=== PATIENT | female | born 1970 | race Caucasian/White ===

== ENCOUNTER → 2017-07-23 09:19 | Outpatient (CLI) | payer OTHER, SELFPAY ==
--- NOTE | 2017-07-23 09:25 | RAD_ITS ---
STUDY: X-RAY - LEFT SHOULDER REASON FOR EXAM: Female, 46 years old. Shoulder pain after repetitive lifting at work. TECHNIQUE: 3 view(s) of the shoulder. COMPARISON: None. FINDINGS: There is a mildly low riding shoulder without brian dislocation. There is no acute fracture lucency. There is no cortical step-off. The acromioclavicular and coracoclavicular joint spaces appear normal. The left lung within the field of view appears unremarkable. There is well-corticated and diffuse calcification adjacent to the humeral head and in the subacromial space. Normal Normal visualized pulmonary apex. RAD/Shoulder min 2 Views IMPRESSION: No evident acute osseous abnormality. Periarticular calcification consistent with a manifestation of calcific tendinitis versus calcific bursitis/capsulitis. Mildly low riding humeral head may represent a manifestation of joint effusion. Electronically Signed: Jb Newberry MD at 9:52 EDT , Service support ,
== END ==
PROVIDERS: Family Provider Family Medicine; PCP Family Medicine; Visit Provider Physician Assistant
DX: S46.912A Strain of unspecified muscle, fascia and tendon at shoulder and upper arm level, left arm, initial encounter (principal); X58.XXXA Exposure to other specified factors, initial encounter; Y93.9 Activity, unspecified; Y92.9 Unspecified place or not applicable; Y99.9 Unspecified external cause status
CPT/HCPCS: 73030

== ENCOUNTER 2017-09-12 16:30 | Outpatient (RCR) | payer OTHER, SELFPAY ==
--- NOTE | 2017-08-10 16:00 | HP.PTEVAL_ITS ---
Patient's Visit Information MIGUEL RENO is a 46 year old F referred to Physical Therapy by DARCY Klein with a diagnosis of STRAIN OF LEFT ARM.. Date of Evaluation: 08/10/17 Physical Therapist: Catherine Sanchez - Visit Plan Frequency: 3x /Week Duration: 4-6 Weeks Plan: POSTURE CORRECTION/STRENGTHENING, INSTRUCTION IN APPROPRIATE BODY MECHANICS AND ACTIVITY MODIFICATIONS. GREGORY UE ROM, STRETCHING AND STRENGTHENING. HEP INSTRUCTION. MODALITIES NEEDED. - Subjective Subjective: Diagnosis: STRAIN OF LEFT ARM. 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 Disability: NO. Present symptoms: LEFT UPPER ARM. NO NUMBNESS OR TINGLING. Present since: JULY 20 2017. Pain Scale: WORSE 3/10, LEAST 0/10. Currently: 2/10. Commenced as a result of : TWISTING AND CLAMPING PARTS AT WORK WHILE STANDING. Symptoms at onset: SAME CURRENT BUT GETTING BETTER. Worse: WORK, CARRYING PURSE WITH LEFT HAND , OPENING STUFF AT HOME LIKE JARS - HURTS TO HOLD JAR WITH LEFT WHILE TWISTING WITH RIGHT. 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 Better: RESTING IT. Disturbed sleep: YES - HARD TO SLEEP ON LEFT SIDE. Previous history/Previous treatment: UNREMARKABLE. Dizziness: NO. Tinnitis: NO. Nausea: NO. Difficulty Swollowing: NO. Gait: NORMAL. Accidents: BNO. Unexplained weight loss: NO. Imaging: LEFT SHOULDER X-RAY - PATIENT REPORTS SHE WAS TOLD THERE WAS A SPOT ON HER BONE THAT LOOKED LIKE AN OLD INJURY BUT SHE DOESN'T EVER REMEMBER HURTING HER SHOULDER BEFORE. PMH: UNREMARKABLE. Recent major surgery: UNREMARKABLE - Objective Sitting Posture: POOR. FORWARD HEAD AND ROUNDED SHOULDERS. NO TORTICOLLIS. MILD SUBLUXATION OF LEFT SHOULDER COMPARED TO RIGHT. Active Correction of posture: NE. Other Observations: INDEP GAIT INTO PT WITHOUT ASSISTIVE DEVICE. PATIENT IS CALM AND PLEASANT AND COOPERATIVE TO WORK WITH. Motor deficit: RIGHT UE WFL. RIGHT SHOULDER FLEX 3-/5, ABD 3-/5, IR 4-/5, ER 3-/5. 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 Sensory deficit: GREGORY UE LIGHT TOUCH SENSATION IS INTACT AND SYMMETRICAL. ROM deficit: RIGHT SHOULDER WFL. LEFT SHOULDER ACTIVE ROM IN SITTING FOR FLEXION = 130 DEG, ABD = 160 DEG. SUPINE LEFT SHOULDER FLEX , ABD, IR, ER. Reflexes: 2/3 GREGORY UE'S. Dural Signs: NEGATIVE GREGORY UE'S. Cervical Mvmt Loss: CERVICAL ROM WFL ALL PLANES AND PATIENT DENIES ANY INCREASED PAIN WITH CERVICAL ROM TESTING ALL PLANES. Postural strength: POOR. Palpation: NO ACUTE TENDERNESS WITH PALPATION OF THE NECK, SHOULDERS OR ARMS. - Goals Goal 1:: DECREASE C/O LEFT SHOULDER/ARM PAIN Goal Time Frame: 4-6 Weeks Goal 2:: INCREASE PAINFREE FUNCTIONAL ROM OF LEFT UE Goal Time Frame: 4-6 Weeks Goal 3:: INCREASE PAINFREE FUNCTIONAL STRENGTH OF LUE Goal Time Frame: 4-6 Weeks Goal 4:: SUCCESSFUL RETURN TO FULL DUTY WORK Goal Time Frame: 4-6 Weeks Goal 5:: INDEP HEP FOR CONTINUE IMPROVEMENT ONCE FORMAL PT CONCLUDES. Goal Time Frame: 4-6 Weeks - Rehabilitation Potential Rehabilitation Potential: Good - Anticipated Interventions Patient/Client Instruction: Educate patient on: Condition, Plan of Care, Risk Factors, Benefits of Fitness Program For the Purpose of:: To improve self management Therapeutic Exercise to Include: Strength training, Body mechanics, Postural training, Flexibilty training, Passive ROM, Active ROM, Scapular Strength/ Stabilization For the Purpose of:: To decrease pain, To increase ROM, To improve muscle performance and motor function, To improve ability to perform ADL's, To increase tolerance to activity/condition/position, To improve ability of physical actions for home/community/work/leisure Manual Therapy Techniques to Include: Passive ROM, Soft tissue mobilization For the Purpose of:: To decrease pain, To decrease swelling/inflammation, To increase ROM, To improve nutrient delivery to tissue TENS: Yes IF ES: Yes Cryotherapy (ice pack, ice massage): Yes Thermo therapy (hot pack): Yes Ultrasound (thermal/non thermal): Yes For the Purpose of:: To decrease pain, To decrease swelling/inflammation, To increase ROM, To improve nutrient delivery to tissue Thank you for the opportunity to evaluate your patient. For Medicare and Medicare HMO plans, please review the plan of care and approve it. It will need to be FAXED BACK to us at [phone] for Medicare purposes. Please let me know if there are questions or concerns regarding this plan of care. Physician Signature: Date:
--- NOTE | 2017-09-12 17:14 | HP.PTREVAL ---
DARCY Klein, It has been my pleasure to treat MIGUEL RENO over the last 10 visits for STRAIN OF LEFT ARM.. Please see the progress note below for an update on the physical therapy plan of care! Subjective: PATIENT REPORTS EVERYTHING HAS IMPROVED. SHE REPORTS SHE CAN REACH UP ABOVE HER HEAD WITHOUT PAIN. SHE CAN LIFT AND USE HER ARM AT HOME AND AT WORK WITHOUT PAIN. I'VE COME A LONG WAY. PATIENT REPORTS SHE STILL FEELS WEAK REACHING OUT TO THE SIDE. SHE REPORTS SHE REALLY HASN'T BEEN HAVING ANY SHOULDER PAIN BUT IT DOES GET SORE WITH EX'S LIFTING OUT TO THE SIDE AND AFTER WORKING. FOLLOW UP WITH BETO TAVERAS PLANNED TOMORROW. PATIENT REPORTS SHE HAS BEEN DOING PRETTY MUCH EVERYTHING AT WORK EXCEPT CLAMPING AND OVER-TIME. SHE FEELS READY TO HAVE HER RESTRICTIONS REMOVED. Objective/Function: PATIENT IS MAKING GREAT PROGRESS BUT STILL HAS LEFT SHOULDER DEFICITS IN TERMS OF STRENTH AND ROM. UPON EXAM: Motor deficit: RIGHT UE WFL. LEFT SHOULDER FLEX 4+/5, ABD 4/5, IR 5/5, ER 4-/5 (LEFT SHOULDER TESTED IN AVAILABLE RANGE). LEFT ELBOW, WRIST AND HAND 5/5 WITH VOLTAGE REGULATOR ASSEMBLER STRENGTH OF 40 LBS (RIGHT VOLTAGE REGULATOR ASSEMBLER 50 LBS). Sensory deficit: GREGORY UE LIGHT TOUCH SENSATION IS INTACT AND SYMMETRICAL. ROM deficit: RIGHT SHOULDER WFL. LEFT SHOULDER PROM IN SUPINE FOR FLEXION = 168 DEG, ABD = 140 DEG. IR - FULL, ER 48 DEG. PATIENT HAS PAIN AT THE END OF THE THE AVAILABLE ROM ALL PLANES WITH TESTING IN SUPINE. AROM OF LEFT SHOULDER IN SITTING INTO FLEX AND ABD IS WFL AND NOT PAINFUL WITH TESTING. THE PAIN AND TIGHTNESS IS REALLY REVEALED IN SUPINE WITH PASSIVE TESTING. Cervical Mvmt Loss: CERVICAL ROM WFL ALL PLANES AND PATIENT DENIES ANY INCREASED PAIN WITH CERVICAL ROM TESTING ALL PLANES. WOULD RECOMMEND CONTINUED PT DUE TO IMPROVEMENT MADE AND ROOM FOR MORE IMPROVEMENT IN TERMES OF LEFT SHOULDER FUNCTION. DASH SCORE HAS IMPROVED FROM 65 TO 33. Plan Plan: FOLLOW UP WITH Luanne TAVERAS TOMORROW. WOULD RECOMMEND CONTINUE PT 2X'S A WEEK FOR 3 WEEKS THEN 1X/WEEK X 3 WEEKS IF PA CONCURRS. Goals Goal 1:: DECREASE C/O LEFT SHOULDER/ARM PAIN Goal Time Frame: 4-6 Weeks Goal Progress: Progressing Goal 2:: INCREASE PAINFREE FUNCTIONAL ROM OF LEFT UE Goal Time Frame: 4-6 Weeks Goal Progress: Progressing Goal 3:: INCREASE PAINFREE FUNCTIONAL STRENGTH OF LUE Goal Time Frame: 4-6 Weeks Goal Progress: Progressing Goal 4:: SUCCESSFUL RETURN TO FULL DUTY WORK Goal Time Frame: 4-6 Weeks Goal Progress: Progressing Goal 5:: INDEP HEP FOR CONTINUE IMPROVEMENT ONCE FORMAL PT CONCLUDES. Goal Time Frame: 4-6 Weeks Goal Progress: Progressing Anticipated Interventions Patient/Client Instruction: Educate patient on: Condition, Plan of Care, Risk Factors, Benefits of Fitness Program For the Purpose of:: To improve self management Therapeutic Exercise to Include: Strength training, Body mechanics, Postural training, Flexibilty training, Passive ROM, Active ROM, Scapular Strength/Stabilization For the Purpose of:: To decrease pain, To increase ROM, To improve muscle performance and motor function, To improve ability to perform ADL's, To increase tolerance to activity/condition/position, To improve ability of physical actions for home/community/work/leisure Manual Therapy Techniques to Include: Passive ROM, Soft tissue mobilization For the Purpose of:: To decrease pain, To decrease swelling/inflammation, To increase ROM, To improve nutrient delivery to tissue TENS: Yes IF ES: Yes Cryotherapy (ice pack, ice massage): Yes Thermo therapy (hot pack): Yes Ultrasound (thermal/non thermal): Yes For the Purpose of:: To decrease pain, To decrease swelling/inflammation, To increase ROM, To improve nutrient delivery to tissue Please do not hesitate to contact me at [phone] by phone or if you have questions or concerns regarding this new plan of care! Sincerely, Catherine Sanchez
--- NOTE | 2018-01-17 13:01 | HP.PT.NRP ---
HP - Discharge Summary (1) - Patient Information TI Roberta RENO was seen in my office for initial evaluation on 08/10/17. The following Plan of Care was established for this patient: Initial Frequency: 3x /Week Initial Duration: 4-6 Weeks - Anticipated Interventions Patient/Client Instruction: Educate patient on: Condition, Plan of Care, Risk Factors, Benefits of Fitness Program For the Purpose of:: To improve self management Therapeutic Exercise to Include: Strength training, Body mechanics, Postural training, Flexibilty training, Passive ROM, Active ROM, Scapular Strength/Stabilization For the Purpose of:: To decrease pain, To increase ROM, To improve muscle performance and motor function, To improve ability to perform ADL's, To increase tolerance to activity/condition/position, To improve ability of physical actions for home/community/work/leisure Manual Therapy Techniques to Include: Passive ROM, Soft tissue mobilization For the Purpose of:: To decrease pain, To decrease swelling/inflammation, To increase ROM, To improve nutrient delivery to tissue TENS: Yes IF ES: Yes Cryotherapy (ice pack, ice massage): Yes Thermo therapy (hot pack): Yes Ultrasound (thermal/non thermal): Yes For the Purpose of:: To decrease pain, To decrease swelling/inflammation, To increase ROM, To improve nutrient delivery to tissue This patient was last seen in our office . Pertinent comments regarding their Physical therapy will appear below: This patient has not returned to Physical Therapy and is appropriate to return to MD for further follow-up as needed. At this point I will be discontinuing this patient from physical therapy. I would be happy to see this patient again in the future if found appropriate by the physician. Thank you! Catherine Sanchez
== END 2017-09-12 19:00 | disposition home or self-care (01) ==
LOC: PT 16:30
PROVIDERS: Family Provider Family Medicine; PCP Family Medicine; Visit Provider Physician Assistant
DX: S46.912D Strain of unspecified muscle, fascia and tendon at shoulder and upper arm level, left arm, subsequent encounter (principal)
CPT/HCPCS: 97110; 97161; 97164; 97530

== ENCOUNTER → 2018-03-01 12:30 | Outpatient (CLI) | payer OTHER, SELFPAY ==
--- NOTE | 2018-03-01 12:32 | US_ITS ---
HISTORY: THYROID NODULE TECHNIQUE: Cook scale and color doppler imaging was performed of the thyroid gland. COMPARISON: None FINDINGS: Asymmetric enlargement of the left thyroid lobe. Gland measurements are approximately as follows: Right lobe 3.9 x 1.4 x 1.7 cm Left lobe 4.4 x 2.2 x 2.2 cm Thyroid isthmus 0.2 cm The right thyroid lobe shows homogenous echotexture without discrete nodule. The mid and lower pole of the left thyroid lobe shows a dominant complex nodule with cystic and solid components measuring 2.4 x 2 x 2.1 cm. US/Thyroid IMPRESSION: Left thyroid lobe 2.4 cm complex nodule. Ultrasound-guided FNA biopsy should be considered. at 0814 Reported and signed by: Moshe Ward MD Electronically Signed: Moshe Ward, at 8:12 EST Tel , Service support ,
--- OUTSIDE RECORDS SUMMARY | 2018-04-26 11:03 | XMS RPT_ITS ---
:1970 Author Organization [place] Support Name Relationship Address Phone ELVIN RENO Unavailable [address] + [place], [place] [id number] [place], [place] [address]EUGENIE Unavailable [address] + [place] [address] [facility] Un[address] + [place] [address] ELVIN RENO Unavailable [address] + [place] [address] WILSON CREEKEUGENIE Unavailable [address] + [place] [address] [facility] Un[address] + [place] [address] ELVIN RENO Unavailable [address] + [place] [address] WILSON CREEKEUGENIE Unavailable [address] + [place] [address] [facility] Unavailable . + [place] [address] ELVIN RENO Unavailable [address] + [place] [address] [place] EUGENIE Unavailable [address] + [place] [address] [facility] Unavailable . + [place] [address] ELVIN RENO Unavailable [address] + [place] [address] HARMONEUGENIE Unavailable [address] + [place] [address] [facility] Unavailable . + [place] [address] ELVIN RENO Unavailable [address] + [place] [address] HARMON, EUGENIE Unavailable [address] + [place] [address] [facility] Unavailable . + [place] [address] ELVIN RENO Unavailable [address] + [place] [address] HARMON, EUGENIE Unavailable [address] + [place] [address] [facility] Unavailable . + [place] [address] ELVIN RENO Unavailable [address] + [place] [address] HARMON, EUGENIE Unavailable [address] + [place] [id number] [facility] Unavailable . + [place] [address] ELVIN RENO Unavailable [address] + [place] [address] HARMON, EUGENIE Unavailable [address] + [place] [id number] [facility] Unavailable . + [place] [address] ELVIN RENO Unavailable [address] + [place] [address] HARMON, EUGENIE Unavailable [address] + [place] [address] [facility] Unavailable . + [place] [address] ELVIN RENO Unavailable [address] + [place] [address] HARMON, EUGENIE Unavailable [address] + [place] / [place] Unavailable Unavailable Unavailable ELVIN RENO Unavailable [address] + [place] [address] HARMON, EUGENIE Unavailable [address] + [place] [address] [facility] Unavailable . + [place] [address] ROWDY, ELVIN Unavailable [address] + [place] [address] EUGENIE HARMON Unavailable [address] + [place] / Unavailable Unavailable Unavailable Care Team Providers Name Role Phone BHAVYA BAILEY Attending Unavailable TOMCHAK, BHAVYA Referring Unavailable TOMCHAK, BHAVYA Primary Care Unavailable Rene Daniels Attending Unavailable Wyles, Trevin Attending Unavailable Wyles, Trevin Attending Unavailable Wyles, Trevin Attending Unavailable Wyles, Trevin Referring Unavailable TOMCHAK, BHAVYA Primary Care Unavailable Wyles, Trevin Attending Unavailable Wyles, Trevin Referring Unavailable TOMCHAK, BHAVYA Primary Care Unavailable Wyles, Trevin Attending Unavailable TOMCHAK, BHAVYA Referring Unavailable TOMCHAK, BHAVYA Primary Care Unavailable Wyles, Trevin Attending Unavailable TOMCHAK, BHAVYA Referring Unavailable TOMCHAK, BHAVYA Primary Care Unavailable Wyles, Trevin Attending Unavailable TOMCHAK, BHAVYA Referring Unavailable TOMCHAK, BHAVYA Primary Care Unavailable Moshe Sebastian Attending Unavailable TOMCHAK, BHAVYA Referring Unavailable Wyles, Trevin Attending Unavailable TOMCHAK, BHAVYA Referring Unavailable TOMCHAK, BHAVYA Primary Care Unavailable Rene Daniels Attending Unavailable TOMCHAK, BHAVYA Referring Unavailable TOMCHAK, BHAVYA Primary Care Unavailable TOMCHAK, BHAVYA Attending Unavailable TOMCHAK, BHAVYA Referring Unavailable TOMCHAK, BHAVYA Primary Care Unavailable PROBLEMS PROBLEMS DATE TYPE CONDITION / CODE ATTENDING STATUS SOURCE 10/01/2017 Unknown S46.912A - Strain Moshe Sebastian Active [place] [facility] unspecified Community muscle, fascia [facility] shoulder and upper arm level, left arm, initial encounter / S46.912A(ICD-10) 01/17/2018 Unknown S46.912D - Strain Trevin Costello Active [place] of unspecified Community muscle, fascia [facility] shoulder and upper arm level, left arm, subsequent encounter / S46.912D(ICD-10) PROCEDURES PROCEDURES No Procedure Records FoundRESULTS RESULTS US THYROID BIOPSY Observed: 03/15/2018 Status: F Source: [place] 1:46 PM [facility] REPOSITORY [facility] Services [address] [place] [address] US Thyroid Biopsy MR#: [id number] Acct: [id number] Name: MIGUEL RENO Rep #: [id number] : 1970 F 47 From: Ramakrishna Conn MD PCP: Bhavya Bailey MD Status: REG CLI Study: US Thyroid Biopsy Date of Exam: 03/15/18 Exam# [id number] Ordering Dr: Bhavya Bailey MD PROCEDURE: ULTRASOUND GUIDED LEFT THYROID FNA/BIOPSY. DATE: March 15, 2018. INDICATION: Female, 47 years old. Heterogeneous nodule in the left lobe of the thyroid. PHYSICIAN: Ramakrishna Conn M.D. MEDICATIONS: 2% lidocaine administered subcutaneously for local anesthesia. ACCESS SITE: Left - anterior approach. NEEDLE: 25-gauge FNA needle. SPECIMEN: Multiple FNA specimen collected and given to pathology. EBL: None. COMPLICATIONS: None immediate. PROCEDURE: The risks, benefits, and alternatives to the procedure were explained to the patient. The specific risk of hemorrhage requiring further treatment or intervention was detailed and accepted. Written informed consent was obtained. The patient was brought into the ultrasound room and placed in the supine position on the stretcher. An appropriate entry site was identified. The overlying skin was prepped and draped in the usual sterile fashion. 2% lidocaine was administered subcutaneously for local anesthesia. Under ultrasound guidance, a 25-gauge FNA needle was advanced into the lesion. Aspiration was performed and the needle was withdrawn. A total of 2 passes were performed with specimen collected and given to the pathologist who was present during the procedure. Hemostasis was achieved with manual compression. Repeat ultrasound images of the biopsy area was performed which demonstrated no gross bleeding or hematoma. An antibiotic ointment dressing was placed and the patient was given an icepack. The patient tolerated the procedure well without immediate complications. The patient was discharged in stable condition. US/US Thyroid Biopsy IMPRESSION: Successful ultrasound-guided left thyroid nodule FNA/biopsy, as described above. Electronically Signed: Ramakrishna Conn MD at 15:03 EST Tel [phone], Service support , CC: Bhavya Bailey MD Sample Display Preparer: Signed ASP RADIOLOGY (FLUID) Observed: 03/15/2018 Status: F Source: [place] 12:00 AM [facility] REPOSITORY Patient: MIGUEL RENO : 1970 (47/F) Acct Num: [id number] Phys: Bhavya Bailey MD Unit Num: [id number] Loc: US Specimen: [id number] Received: 03/15/18 - 1434 Spec Type: ASP OUT TISSUES 1 TISSUES: THORACIC FLUID COMMENT The specimen is evaluated at the time of ultrasound-guided left thyroid biopsy by Dr. Ortiz. Immediate Evaluation = Follicular cells present. Adequate for evaluation. Correlation with clinical, radiologic findings and appropriate follow up are necessary. CYTOLOGY GROSS Received is 0.2 ml of bloody fluid from two passes labeled with the patient's name, and designated left thyroid nodule. Eight imprints and five paps are made from the submitted fluid and the rest is added to CytoLyt for cell block preparation. Submitted for cytology study. / SJ:stevie 03/15/18 TC:5 CPT: 68524, 60802, 62960 CYTOLOGY STUDY Slides are reviewed. The specimen is adequate for evaluation. The specimen consists of numerous macrophages and benign follicular cells. DIAGNOSIS CYTOLOGY Left thyroid nodule, ultrasound-guided FNA (smears and cell block): Consistent with benign cystic follicular nodule. See cytology study and comment. SJ:stevie 03/18/18 HEADER OPERATION: Ultrasound-guided left thyroid biopsy PRE-OP DIAGNOSIS: Left thyroid nodule TISSUE SUBMITTED: Left thyroid nodule, ultrasound-guided FNA Signed Jose Ortiz 03/18/18 <signature on file> Performed By: #### PASPIG #### [facility] [address] [place], [address] THYROID Observed: 03/01/2018 Status: F Source: [place] 12:32 PM [facility] REPOSITORY [facility] Imaging Services [address] [place] [address] Thyroid MR#: [id number] Acct: [id number] Name: MIGUEL RENO Rep #: [id number] : 1970 F 47 From: Moshe Ward MD PCP: Bhavya Bailey MD Status: REG CLI Study: Thyroid Date of Exam: 03/01/18 Exam# [id number] Ordering Dr: Bhavya Bailey MD HISTORY: THYROID NODULE TECHNIQUE: Cook scale and color doppler imaging was performed of the thyroid gland. COMPARISON: None FINDINGS: Asymmetric enlargement of the left thyroid lobe. Gland measurements are approximately as follows: Right lobe 3.9 x 1.4 x 1.7 cm Left lobe 4.4 x 2.2 x 2.2 cm Thyroid isthmus 0.2 cm The right thyroid lobe shows homogenous echotexture without discrete nodule. The mid and lower pole of the left thyroid lobe shows a dominant complex nodule with cystic and solid components measuring 2.4 x 2 x 2.1 cm. US/Thyroid IMPRESSION: Left thyroid lobe 2.4 cm complex nodule. Ultrasound-guided FNA biopsy should be considered. at 0814 Reported and signed by: Moshe Ward MD Electronically Signed: Moshe Ward, at 8:12 EST Tel , Service support , CC: Bhavya Bailey MD Sample Display Preparer: Signed URGENT CARE VISIT Observed: 10/22/2017 Status: F Source: [place] RE[facility] 12:47 PM [facility] REPOSITORY [facility] [address] [place] [address] OFFICE VISIT Date of Service: 10/22/17 MR#: [id number] Acct: [id number] Name: MIGUEL RENO Rep #: [id number] : 1970 Provider: Rene TAVERAS Age/Sex: 47/F Location: [facility] Status: Signed Intake Vital Signs10/22/17 Height 5 ft 3 in Intake Visit Reasons: TICK ON NECK Allergies bacitracin [From Neosporin (rra-mya-ovvyx)] Allergy (Verified 10/22/17 07:56) Unknown neomycin [From Neosporin (thq-wrh-iyttz)] Allergy (Verified 10/22/17 07:56) Unknown polymyxin B [From Neosporin (yct-nws-ijekt)] Allergy (Verified 10/22/17 07:56) Unknown Medications folic acid 0.8 mg capsule 800 mcg PO QDAY 07/23/17 [History Confirmed 10/22/17] vit B12 50 mcg-iodine 75 mcg-mag 100 ta-seao-gaqjjwlt-herb 193 capsule cap PO 07/23/17 [History Confirmed 10/22/17] ibuprofen 600 mg tablet 600 mg PO TID #60 tab 08/16/17 [Rx Confirmed 10/22/17] PFSH Medical History Shoulder pain (Acute) child (Acute) Social History Smoking Status: Never smoker alcohol intake: never HPI HPI Details: MIGUEL RENO, is a 47 F who presents to the office today for concern of a possible tick on her left neck. Patient states that she has noticed small bugs which she believes is takes on her dogs recently and awoke this morning with a lump to her left neck. She states that she has tried to squeeze out a small black object with no success. She denies seeing any ticks on her or removing a tick from the site. She denies any fever, chills, sweats. No nausea, vomiting, diarrhea. No other associated symptoms or alleviating/aggravating factors. ROS Const Constitutional: No chills, fever(s), fatigue or abnormal sleep pattern Skin Skin: Positive for redness; no wounds or lesions Neuro Neurology: No behavioral changes or confusion Psych Psychiatric: No behavioral changes, No confusion, No abnormal sleep pattern Endo Endocrine: No fatigue Exam Const General: cooperative, healthy appearing Neck Other: Small ingrown hair with slight irritation surrounding. No foreign body or tic seen. Skin General: no rashes or lesions noted Other: See neck exam above. Neuro General: alert, CN's II-XI intact bilaterally Psych Appearance: grossly normal Mental Status: mental status grossly normal Assessment AND Plan Problems 1. Folliculitis L73.9 Status Acute Plan Due to the extremely small area of folliculitis patient has been advised to keep the area clean with normal soap and water and apply warm compress twice daily. Advised to follow-up with her PCP in 5-7 days if no better or sooner if worse. Patient advised of potential red flags and when appropriate report to the ED. Patient verbalized understanding of all the above. Coding Level of Care Code Off vis,est,level 3 Diagnoses Folliculitis L73.9 10/22/17 1247 <Electronically signed by Rene TAVERAS> Date Rene TAVERAS Cosigner Signature: Date (if applicable) CC: URGENT CARE VISIT Observed: 09/27/2017 Status: F Source: [place] RE[place] 3:[address] [facility] [address] [place] [address] OFFICE VISIT Date of Service: 09/27/17 MR#: [id number] Acct: [id number] Name: MIGUEL RENO Rep #: [id number] : 1970 Provider: Trevin TAVERAS Age/Sex: 47/F Location: [facility] Status: Signed Intake Vital Signs09/27/17 Height 5 ft 3 in 09/27/17 Weight: 201 lb 09/27/17 Body Mass Index (BMI) 35.6 Intake Visit Reasons: 2 WK F/U Chief Complaint: L shoulder recheck 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 Is patient in pain?: Yes Allergies bacitracin [From Neosporin (scr-nmy-mnthx)] Allergy (Verified 09/27/17 15:25) Unknown neomycin [From Neosporin (mzc-xmh-xsybk)] Allergy (Verified 09/27/17 15:25) Unknown polymyxin B [From Neosporin (jjm-izl-exgdl)] Allergy (Verified 09/27/17 15:25) Unknown Medications cyclobenzaprine 10 mg tablet 10 mg PO TID PRN #20 tab 07/23/17 [Rx Confirmed 09/27/17] folic acid 0.8 mg capsule 800 mcg PO QDAY 07/23/17 [History Confirmed 09/27/17] prednisone 10 mg tablets in a dose pack See Label Instructions PO PER PKG DIR #21 tab 07/23/17 [Rx Confirmed 09/27/17] vit B12 50 mcg-iodine 75 mcg-mag 100 ig-krzz-owcpoczk-herb 193 capsule cap PO 07/23/17 [History Confirmed 09/27/17] ibuprofen 600 mg tablet 600 mg PO TID #60 tab 08/16/17 [Rx Confirmed 09/27/17] PFSH Medical History Shoulder pain (Acute) child (Acute) Social History Smoking Status: Never smoker alcohol intake: never HPI HPI Chief Complaint: L shoulder recheck Details: MIGUEL RENO, is a 47 F who presents to the office today for recheck left shoulder, with patient noting only mild/moderate aching discomfort to the same with full active range of motion. Patient has been working within restrictions, though is requesting to have those restrictions lifted so that she can work full duty effective today. She notes only occasional intermittent clicking locking of the left shoulder, stating this does not cause remarkable discomfort nor limit her from performing her duties. She has previously completed her physical therapy regimen and has been consistently performing home range of motion exercises at home. She notes no other associated symptoms and no other alleviating or aggravating factors. ROS Const Constitutional: No chills or fever(s) Musc Musculoskeletal: Positive for joint pain; no back pain, limited range of motion, joint swelling, deformity, tingling or numbness Skin Skin: No change in hair or sores Neuro Neurology: No tingling or numbness Exam Const General: cooperative, healthy appearing, no acute distress, comfortable Nutritional Appearance: average body habitus Orientation: alert, awake, oriented x3 Chest Chest palpation AND inspection: normal inspection of the chest Resp Effort AND Inspection: normal respiratory effort, able to speak in complete sentences, symmetric chest movement Cardio Rate: regular rate Pulses: radial pulses present Skin General: no rashes or lesions noted Neuro General: alert, awake, oriented x3, gait normal Cognition: normal cognition Speech: speech normal Gait: normal gait Motor: muscle tone normal throughout Sensory Exam: no sensory deficits noted Extrem General: normal to inspection, full ROM, normal capillary refill, no joint enlargement, normal exam except as noted (Trace tender to palpation directly over left ACJ) Assessment AND Plan Problems 1. Left shoulder strain S46.912A Plan Return to work without restrictions effective today, provided patient continue home range of motion exercises. [facility]he[facility] at the [facility] in 4 weeks, sooner should symptoms worsen or any other concerns develop - ANTICIPATING RELEASE WITHOUT RESTRICTIONS THEN. Patient states acknowledging understanding all the above. This note was generated with OneFoldation software. It may contain incorrect words, spelling, and punctuation that were not noted in checking the note before signing. Coding Level of Care Code Off vis,est,level 3 Diagnoses Left shoulder strain S46.912A 09/27/17 1535 <Electronically signed by Trevin TAVERAS> Date Trevin TAVERAS Cosigner Signature: Date (if applicable) CC: OFFICE VISIT REPORT Observed: 09/17/2017 Status: F Source: [place] 10:17 AM [address] [place] [address] OFFICE VISIT Date of Service: 09/13/17 MR#: [id number] Acct: [id number] Patient: MIGUEL RENO Roberta Rep #: [id number] : 1970 Provider: DARCY Sebastian Age/Sex: 46/F Location[place] [facility] [place] Status: Signed Intake Vital Signs09/13/17 Height 5 ft 3 in 09/13/17 Weight: 201 lb 09/13/17 Body Mass Index (BMI) 35.6 09/13/17 Blood Pressure 114/80 Intake Visit Reasons: 2 wk f/u Chief Complaint: L shoulder recheck 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 Is patient in pain?: No Allergies bacitracin [From Neosporin (pqx-sap-emhof)] Allergy (Verified 09/13/17 15:50) Unknown neomycin [From Neosporin (hwl-ced-sxenz)] Allergy (Verified 09/13/17 15:50) Unknown polymyxin B [From Neosporin (jjn-nww-eorce)] Allergy (Verified 09/13/17 15:50) Unknown Medications cyclobenzaprine 10 mg tablet 10 mg PO TID PRN #20 tab 07/23/17 [Rx Confirmed 09/13/17] folic acid 0.8 mg capsule 800 mcg PO QDAY 07/23/17 [History Confirmed 09/13/17] prednisone 10 mg tablets in a dose pack See Label Instructions PO PER PKG DIR #21 tab 07/23/17 [Rx Confirmed 09/13/17] vit B12 50 mcg-iodine 75 mcg-mag 100 ur-wxux-axygdgun-herb 193 capsule cap PO 07/23/17 [History Confirmed 09/13/17] ibuprofen 600 mg tablet 600 mg PO TID #60 tab 08/16/17 [Rx Confirmed 09/13/17] PFSH Medical History Shoulder pain (Acute) child (Acute) Social History Smoking Status: Never smoker alcohol intake: never HPI HPI Chief Complaint: L shoulder recheck Details: MIGUEL RENO, is a 46 F who presents to the office today for follow-up on left shoulder. Patient has been in PT, and has had some minor work modifications. She states that her ROM is good at this time. She states that her strength is improving and is about 90% better but still notices some difference with certain movements / activities. She states that she does not really have anymore pains in the shoulder. ROS Musc Musculoskeletal: Positive for muscle weakness; no joint swelling, abnormal walking, joint pain, limited range of motion, numbness or stiffness Neuro Neurology: No abnormal walking or numbness Exam Const General: cooperative, healthy appearing, well developed, well groomed Nutritional Appearance: overweight Orientation: alert, awake, oriented x3 Musc Musculoskeletal: Yes muscle weakness Other: Shoulder is normal on inspection with good muscle mass. Patient has FROM in the left shoulder at at this time. She has no translation of humeral head and no signs of impingement (negative Rutledge and Neer). She does not have tenderness on palpation of the AC joint. There is very minimal tenderness on the lateral deltoid over subacromial region. There is no biceps tenderness, no decrease in strength, and negative Speeds test. She has normal lift off test. Strength testing though does show some minor decrease in abduction against resistance and slight decrease with internal rotation. Although minor she definitely is not equal compared to the right. Neuro Sensory Exam: no sensory deficits noted Assessment AND Plan Problems 1. Left shoulder strain S46.912A Plan At this time Patient is doing well. Her ROM is great at this time without any signs of impingement. Her strength is good but not quite 100%. She states that she has been doing pretty much most things at work but is unable to do overtime with her restrictions. My only concern would be that she over due activity (she does have repetitious job) or she possibly strain another muscle as her strength is not 100% and therefore may compensate for support. I don't want her to regress. I do think that she likely should be back to 100% in the next 1-2 weeks and can begin to work overtime. Continue working on exercises given at PT. Ice and NSAID PRN - Plan Detail Follow Up 2 Weeks Coding Level of Care Code Off vis,est,level 3 Diagnoses Left shoulder strain S46.912A 09/17/17 1017 <Electronically signed by Moshe TAVERAS> Date Moshe TAVERAS Cosigner Signature: Date (if applicable) CC: RE-EVALUATION - PT (1) Observed: 09/12/2017 Status: F Source: [place] 5:14 PM [facility] REPOSITORY [facility] [address] [place] [address]. [address] [place] [address] Fax REEVALUATION / MEDICARE RECERTIFICATION PHYSICAL THERAPY MR#: [id number] Acct: [id number] Name: MIGUEL RENO Rep #: [id number] : 1970 46 From: Catherine Sanchez PT, Cert. MDT Referring Dr.: Trevin TAVERAS Status: REG RCR Insurance: [employer] DARCY Klein, It has been my pleasure to treat MIGUEL RENO over the last 10 visits for STRAIN OF LEFT ARM.. Please see the progress note below for an update on the physical therapy plan of care! Subjective: PATIENT REPORTS EVERYTHING HAS IMPROVED. SHE REPORTS SHE CAN REACH UP ABOVE HER HEAD WITHOUT PAIN. SHE CAN LIFT AND USE HER ARM AT HOME AND AT WORK WITHOUT PAIN. I'VE COME A LONG WAY. PATIENT REPORTS SHE STILL FEELS WEAK REACHING OUT TO THE SIDE. SHE REPORTS SHE REALLY HASN'T BEEN HAVING ANY SHOULDER PAIN BUT IT DOES GET SORE WITH EX'S LIFTING OUT TO THE SIDE AND AFTER WORKING. FOLLOW UP WITH BETO TAVERAS PLANNED TOMORROW. PATIENT REPORTS SHE HAS BEEN DOING PRETTY MUCH EVERYTHING AT WORK EXCEPT CLAMPING AND OVER-TIME. SHE FEELS READY TO HAVE HER RESTRICTIONS REMOVED. Objective/Function: PATIENT IS MAKING GREAT PROGRESS BUT STILL HAS LEFT SHOULDER DEFICITS IN TERMS OF STRENTH AND ROM. UPON EXAM: Motor deficit: RIGHT UE WFL. LEFT SHOULDER FLEX 4+/5, ABD 4/5, IR 5/5, ER 4-/5 (LEFT SHOULDER TESTED IN AVAILABLE RANGE). LEFT ELBOW, WRIST AND HAND 5/5 WITH SENIOR INSTRUCTOR STRENGTH OF 40 LBS (RIGHT SENIOR INSTRUCTOR 50 LBS). Sensory deficit: GREGORY UE LIGHT TOUCH SENSATION IS INTACT AND SYMMETRICAL. ROM deficit: RIGHT SHOULDER WFL. LEFT SHOULDER PROM IN SUPINE FOR FLEXION = 168 DEG, ABD = 140 DEG. IR - FULL, ER 48 DEG. PATIENT HAS PAIN AT THE END OF THE THE AVAILABLE ROM ALL PLANES WITH TESTING IN SUPINE. AROM OF LEFT SHOULDER IN SITTING INTO FLEX AND ABD IS WFL AND NOT PAINFUL WITH TESTING. THE PAIN AND TIGHTNESS IS REALLY REVEALED IN SUPINE WITH PASSIVE TESTING. Cervical Mvmt Loss: CERVICAL ROM WFL ALL PLANES AND PATIENT DENIES ANY INCREASED PAIN WITH CERVICAL ROM TESTING ALL PLANES. WOULD RECOMMEND CONTINUED PT DUE TO IMPROVEMENT MADE AND ROOM FOR MORE IMPROVEMENT IN TERMES OF LEFT SHOULDER FUNCTION. DASH SCORE HAS IMPROVED FROM 65 TO 33. Plan Plan: FOLLOW UP WITH Luanne TAVERAS TOMORROW. WOULD RECOMMEND CONTINUE PT 2X'S A WEEK FOR 3 WEEKS THEN 1X/WEEK X 3 WEEKS IF PA CONCURRS. Goals Goal 1:: DECREASE C/O LEFT SHOULDER/ARM PAIN Goal Time Frame: 4-6 Weeks Goal Progress: Progressing Goal 2:: INCREASE PAINFREE FUNCTIONAL ROM OF LEFT UE Goal Time Frame: 4-6 Weeks Goal Progress: Progressing Goal 3:: INCREASE PAINFREE FUNCTIONAL STRENGTH OF LUE Goal Time Frame: 4-6 Weeks Goal Progress: Progressing Goal 4:: SUCCESSFUL RETURN TO FULL DUTY WORK Goal Time Frame: 4-6 Weeks Goal Progress: Progressing Goal 5:: INDEP HEP FOR CONTINUE IMPROVEMENT ONCE FORMAL PT CONCLUDES. Goal Time Frame: 4-6 Weeks Goal Progress: Progressing Anticipated Interventions Patient/Client Instruction: Educate patient on: Condition, Plan of Care, Risk Factors, Benefits of Fitness Program For the Purpose of:: To improve self management Therapeutic Exercise to Include: Strength training, Body mechanics, Postural training, Flexibilty training, Passive ROM, Active ROM, Scapular Strength/Stabilization For the Purpose of:: To decrease pain, To increase ROM, To improve muscle performance and motor function, To improve ability to perform ADL's, To increase tolerance to activity/condition/position, To improve ability of physical actions for home/community/work/leisure Manual Therapy Techniques to Include: Passive ROM, Soft tissue mobilization For the Purpose of:: To decrease pain, To decrease swelling/inflammation, To increase ROM, To improve nutrient delivery to tissue TENS: Yes IF ES: Yes Cryotherapy (ice pack, ice massage): Yes Thermo therapy (hot pack): Yes Ultrasound (thermal/non thermal): Yes For the Purpose of:: To decrease pain, To decrease swelling/inflammation, To increase ROM, To improve nutrient delivery to tissue Please do not hesitate to contact me at [phone] by phone or if you have questions or concerns regarding this new plan of care! Sincerely, Catherine Sanchez <Electronically signed by Catherine Sanchez PT, Cert. MDT> 09/12/17 1714 CC: BHAVYA TAVERAS SUJIT Signed For Medicare only, by signing this I certify the plan of care. Physicians Signature Date URGENT CARE VISIT Observed: 08/30/2017 Status: F Source: EARNEST REPORT 4:47 PM [facility] REPOSITORY [facility] [address] [place] [address] [address] [place] [address] OFFICE VISIT Date of Service: 08/30/17 MR#: [id number] Acct: [id number] Name: MIGUEL RENO Rep #: [id number] : 1970 Provider: Trevin TAVERAS Age/Sex: 46/F Location: [facility] Status: Signed Intake Vital Signs08/30/17 Height 5 ft 3 in 08/30/17 Weight: 201 lb 08/30/17 Body Mass Index (BMI) 35.6 08/30/17 Blood Pressure 126/78 Intake Visit Reasons: 2 WK F/U Chief Complaint: L shoulder recheck 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 Is patient in pain?: No Allergies bacitracin [From Neosporin (afi-xlf-ocxas)] Allergy (Verified 08/30/17 15:21) Unknown neomycin [From Neosporin (kfq-msr-uehow)] Allergy (Verified 08/30/17 15:21) Unknown polymyxin B [From Neosporin (ggo-vxd-wwsel)] Allergy (Verified 08/30/17 15:21) Unknown Medications cyclobenzaprine 10 mg tablet 10 mg PO TID PRN #20 tab 07/23/17 [Rx Confirmed 08/30/17] folic acid 0.8 mg capsule 800 mcg PO QDAY 07/23/17 [History Confirmed 08/30/17] prednisone 10 mg tablets in a dose pack See Label Instructions PO PER PKG DIR #21 tab 07/23/17 [Rx Confirmed 08/30/17] vit B12 50 mcg-iodine 75 mcg-mag 100 pb-xvzb-haevisfc-herb 193 capsule cap PO 07/23/17 [History Confirmed 08/30/17] ibuprofen 600 mg tablet 600 mg PO TID #60 tab 08/16/17 [Rx Confirmed 08/30/17] PFSH Medical History Shoulder pain (Acute) child (Acute) Social History Smoking Status: Never smoker alcohol intake: never HPI HPI Chief Complaint: L shoulder recheck Details: MIGUEL RENO, is a 46 F who presents to the office today for reevaluation left shoulder. Patient notes she has been compliant with physical therapy noting continued improvement in range of motion as well as discomfort. She notes she has been compliant with work restrictions, though requesting to have her work restrictions modified to allow her to do a little bit more. Otherwise she notes no changes since last evaluation. in the context of ROS Const Constitutional: No chills, fever(s) or body ache Musc Musculoskeletal: Positive for joint pain; no back pain, limited range of motion, joint swelling, deformity, tingling or numbness Skin Skin: No redness or rash Neuro Neurology: No tingling or numbness Exam Const General: cooperative, healthy appearing, no acute distress, comfortable Nutritional Appearance: average body habitus Orientation: alert, awake, oriented x3 Skin General: no rashes or lesions noted Neuro General: alert, awake, oriented x3, gait normal Cognition: normal cognition Speech: speech normal Gait: normal gait Motor: muscle tone normal throughout Sensory Exam: no sensory deficits noted Extrem General: normal to inspection, full ROM, normal capillary refill, no joint enlargement, normal exam except as noted (Tender to palpation distal deltoid left shoulder) Assessment AND Plan Problems 1. Left shoulder strain S46.912A Plan Return to work with modified restrictions of no reaching above shoulder level with left arm. 9Continue physical therapy as previously arranged. Rest, ice, Advil/Tylenol as needed for symptomatic relief. Follow-up with the [facility] in 2 weeks, sooner should symptoms worsen or any other concerns develop ---> ANTICIPATE RELEASE THEN. Patient states acknowledging understanding all the above. This note was generated with Imagga dictation software. It may contain incorrect words, spelling, and punctuation that were not noted in checking the note before signing. Coding Level of Care Code Off vis,est,level 3 Diagnoses Left shoulder strain S46.912A 08/30/17 5972 <Electronically signed by Trevin TAVERAS> Date Trevin TAVERAS Cosigner Signature: Date (if applicable) CC: URGENT CARE VISIT Observed: 08/16/2017 Status: F Source: EARNEST REPORT 4:44 PM [facility] REPOSITORY [facility] [address] [place] [address] [address] [place] [address] OFFICE VISIT Date of Service: 08/16/17 MR#: [id number] Acct: [id number] Name: MIGUEL RENO Rep #: [id number] : 1970 Provider: Trevin TAVERAS Age/Sex: 46/F Location: [facility] Status: Signed Intake Vital Signs08/16/17 Height 5 ft 3 in 08/16/17 Weight: 201 lb 08/16/17 Body Mass Index (BMI) 35.6 08/16/17 Blood Pressure 120/74 Intake Visit Reasons: LEFT SHOULDER STRAIN Chief Complaint: L shoulder recheck 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 Is patient in pain?: No Allergies bacitracin [From Neosporin (gxl-tmt-dkiay)] Allergy (Verified 08/16/17 16:26) Unknown neomycin [From Neosporin (uix-zvl-nllok)] Allergy (Verified 08/16/17 16:26) Unknown polymyxin B [From Neosporin (gyj-xxi-cnyaw)] Allergy (Verified 08/16/17 16:26) Unknown Medications cyclobenzaprine 10 mg tablet 10 mg PO TID PRN #20 tab 07/23/17 [Rx Confirmed 08/16/17] folic acid 0.8 mg capsule 800 mcg PO QDAY 07/23/17 [History Confirmed 08/16/17] prednisone 10 mg tablets in a dose pack See Label Instructions PO PER PKG DIR #21 tab 07/23/17 [Rx Confirmed 08/16/17] vit B12 50 mcg-iodine 75 mcg-mag 100 uo-iber-ljgmyhxb-herb 193 capsule cap PO 07/23/17 [History Confirmed 08/16/17] ibuprofen 600 mg tablet 600 mg PO TID #60 tab 08/16/17 [Rx Confirmed 08/16/17] PFSH Medical History Shoulder pain (Acute) child (Acute) Social History Smoking Status: Never smoker alcohol intake: never HPI HPI Chief Complaint: L shoulder recheck Details: MIGUEL PINOROWDY, is a 46 F who presents to the office today for recheck left shoulder injury. Patient notes she finally received her initial evaluation with therapy yesterday and has sessions scheduled throughout the week next week and the following. She has continued moderate severe aching pain to the distal left deltoid which is aggravated to touch and range of motion alleviated minimally with resting to her side. She states that previously prescribed prednisone helped only minimally. She states she has been taking zxvw-tgq-tfcvovu Advil on an as-needed basis only since completing the prednisone. She notes no other complaints at this time. ROS Const Constitutional: No excessive sweating, chills, fever(s), night sweats or body ache ENT ENT: No abnormal hearing Cardio Cardiology: No excessive sweating Musc Musculoskeletal: No joint pain, back pain, limited range of motion, joint swelling, tingling or numbness Skin Skin: No wounds or rash Neuro Neurology: No abnormal hearing, tingling or numbness Endo Endocrine: No excessive sweating Exam Const General: cooperative, healthy appearing, no acute distress, comfortable Nutritional Appearance: average body habitus Orientation: alert, awake, oriented x3 Skin General: no rashes or lesions noted Neuro General: alert, awake, oriented x3, gait normal Cognition: normal cognition Speech: speech normal Gait: normal gait Motor: muscle tone normal throughout Sensory Exam: no sensory deficits noted Extrem General: full ROM, normal capillary refill, no joint enlargement, normal exam except as noted (Remarkably tender to palpation distal L deltoid), normal to inspection Assessment AND Plan Problems 1. Left shoulder strain S46.912A Plan No change in return to work restrictions, with 5 pounds lift push pull restrictions in no reaching above shoulder level with left arm; no restrictions with right arm. Ibuprofen as prescribed today. Rest, ice, Tylenol as needed for symptomatic relief. Continue rehabilitation as previously scheduled. Follow-up PCP in 2 weeks, sooner should symptoms worsen or any other concerns develop. She states acknowledging understanding all the above. This note was generated with Imagga dictation software. It may contain incorrect words, spelling, and punctuation that were not noted in checking the note before signing. Medications New: Coding Level of Care Code Off vis,est,level 3 Diagnoses Left shoulder strain S46.912A 08/16/17 5037 <Electronically signed by Trevin TAVERAS> Date [facility]AS [facility] Signature: Date (if applicable) CC: INITAL EVALUATION (1) Observed: 08/10/2017 Status: F Source: EARNEST - PT 4:00 PM [facility] REPOSITORY [facility] [address] [place] [address] Fax REHABILITATION SERVICES INITIAL EVALUATION MR#: [id number] Acct: [id number] Name: MIGUEL RENO Rep #: [id number] : 1970 46 From: Catherine Sanchez PT, Cert. MDT Referring Dr.: Trevin TAVERAS Status: REG RCR Insurance: [facility]Y INSURANCE Patient's Visit Information MIGUEL RENO is a 46 year old F referred to Physical Therapy by DARCY Klein with a diagnosis of STRAIN OF LEFT ARM.. Date of Evaluation: 08/10/17 Physical Therapist: Catherine Sanchez - Visit Plan Frequency: 3x /Week Duration: 4-6 Weeks Plan: POSTURE CORRECTION/STRENGTHENING, INSTRUCTION IN APPROPRIATE BODY MECHANICS AND ACTIVITY MODIFICATIONS. GREGORY UE ROM, STRETCHING AND STRENGTHENING. HEP INSTRUCTION. MODALITIES NEEDED. - Subjective Subjective: Diagnosis: STRAIN OF LEFT ARM. 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 Disability: NO. Present symptoms: LEFT UPPER ARM. NO NUMBNESS OR TINGLING. Present since: JULY 20 2017. Pain Scale: WORSE 3/10, LEAST 0/10. Currently: 2/10. Commenced as a result of: TWISTING AND CLAMPING PARTS AT WORK WHILE STANDING. Symptoms at onset: SAME CURRENT BUT GETTING BETTER. Worse: WORK, CARRYING PURSE WITH LEFT HAND, OPENING STUFF AT HOME LIKE JARS - HURTS TO HOLD JAR WITH LEFT WHILE TWISTING WITH RIGHT. 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 Better: RESTING IT. Disturbed sleep: YES - HARD TO SLEEP ON LEFT SIDE. Previous history/Previous treatment: UNREMARKABLE. Dizziness: NO. Tinnitis: NO. Nausea: NO. Difficulty Swollowing: NO. Gait: NORMAL. Accidents: BNO. Unexplained weight loss: NO. Imaging: LEFT SHOULDER X-RAY - PATIENT REPORTS SHE WAS TOLD THERE WAS A SPOT ON HER BONE THAT LOOKED LIKE AN OLD INJURY BUT SHE DOESN'T EVER REMEMBER HURTING HER SHOULDER BEFORE. PMH: UNREMARKABLE. Recent major surgery: UNREMARKABLE - Objective Sitting Posture: POOR. FORWARD HEAD AND ROUNDED SHOULDERS. NO TORTICOLLIS. MILD SUBLUXATION OF LEFT SHOULDER COMPARED TO RIGHT. Active Correction of posture: NE. Other Observations: INDEP GAIT INTO PT WITHOUT ASSISTIVE DEVICE. PATIENT IS CALM AND PLEASANT AND COOPERATIVE TO WORK WITH. Motor deficit: RIGHT UE WFL. RIGHT SHOULDER FLEX 3-/5, ABD 3-/5, IR 4-/5, ER 3-/5. LEFT ELBOW, WRIST AND HAND 4/5 WITH SENIOR INSTRUCTOR STRENGTH OF 40 LBS (RIGHT SENIOR INSTRUCTOR 50 LBS). Sensory deficit: GREGORY UE LIGHT TOUCH SENSATION IS INTACT AND SYMMETRICAL. ROM deficit: RIGHT SHOULDER WFL. LEFT SHOULDER ACTIVE ROM IN SITTING FOR FLEXION = 130 DEG, ABD = 160 DEG. SUPINE LEFT SHOULDER FLEX , ABD, IR, ER. Reflexes: 2/3 GREGORY UE'S. Dural Signs: NEGATIVE GREGORY UE'S. Cervical Mvmt Loss: CERVICAL ROM WFL ALL PLANES AND PATIENT DENIES ANY INCREASED PAIN WITH CERVICAL ROM TESTING ALL PLANES. Postural strength: POOR. Palpation: NO ACUTE TENDERNESS WITH PALPATION OF THE NECK, SHOULDERS OR ARMS. - Goals Goal 1:: DECREASE C/O LEFT SHOULDER/ARM PAIN Goal Time Frame: 4-6 Weeks Goal 2:: INCREASE PAINFREE FUNCTIONAL ROM OF LEFT UE Goal Time Frame: 4-6 Weeks Goal 3:: INCREASE PAINFREE FUNCTIONAL STRENGTH OF LUE Goal Time Frame: 4-6 Weeks Goal 4:: SUCCESSFUL RETURN TO FULL DUTY WORK Goal Time Frame: 4-6 Weeks Goal 5:: INDEP HEP FOR CONTINUE IMPROVEMENT ONCE FORMAL PT CONCLUDES. Goal Time Frame: 4-6 Weeks - Rehabilitation Potential Rehabilitation Potential: Good - Anticipated Interventions Patient/Client Instruction: Educate patient on: Condition, Plan of Care, Risk Factors, Benefits of Fitness Program For the Purpose of:: To improve self management Therapeutic Exercise to Include: Strength training, Body mechanics, Postural training, Flexibilty training, Passive ROM, Active ROM, Scapular Strength/Stabilization For the Purpose of:: To decrease pain, To increase ROM, To improve muscle performance and motor function, To improve ability to perform ADL's, To increase tolerance to activity/condition/position, To improve ability of physical actions for home/community/work/leisure Manual Therapy Techniques to Include: Passive ROM, Soft tissue mobilization For the Purpose of:: To decrease pain, To decrease swelling/inflammation, To increase ROM, To improve nutrient delivery to tissue TENS: Yes IF ES: Yes Cryotherapy (ice pack, ice massage): Yes Thermo therapy (hot pack): Yes Ultrasound (thermal/non thermal): Yes For the Purpose of:: To decrease pain, To decrease swelling/inflammation, To increase ROM, To improve nutrient delivery to tissue Thank you for the opportunity to evaluate your patient. For Medicare and Medicare HMO plans, please review the plan of care and approve it. It will need to be FAXED BACK to us at [phone] for Medicare purposes. Please let me know if there are questions or concerns regarding this plan of care. Physician Signature: Date: <Electronically signed by Catherine Sanchez PT, Cert. MDT> 08/10/17 1600 CC: BHAVYA TAVERAS SUJIT Signed For Medicare only, by signing this I certify the plan of care. Physicians Signature Date URGENT CARE VISIT Observed: 08/01/2017 Status: F Source: EARNEST REPORT 2:[address] [place] [address] OFFICE VISIT Date of Service: 08/01/17 MR#: [id number] Acct: [id number] Name: MIGUEL RENO Rep #: [id number] : 1970 Provider: Trevin TAVERAS Age/Sex: 46/F Location: [facility] Status: Signed Intake Vital Signs08/01/17 Height 5 ft 3 in Intake Visit Reasons: L shoulder injury Chief Complaint: L shoulder recheck Allergies bacitracin [From Neosporin (gtp-qfw-vlidm)] Allergy (Verified 08/01/17 13:50) Unknown neomycin [From Neosporin (fct-lbb-rcnck)] Allergy (Verified 08/01/17 13:50) Unknown polymyxin B [From Neosporin (lyz-pgo-aoadj)] Allergy (Verified 08/01/17 13:50) Unknown Medications cyclobenzaprine 10 mg tablet 10 mg PO TID PRN #20 tab 07/23/17 [Rx Confirmed 08/01/17] folic acid 0.8 mg capsule 800 mcg PO QDAY 07/23/17 [History Confirmed 08/01/17] prednisone 10 mg tablets in a dose pack See Label Instructions PO PER PKG DIR #21 tab 07/23/17 [Rx Confirmed 08/01/17] vit B12 50 mcg-iodine 75 mcg-mag 100 uf-hfho-pdopymby-herb 193 capsule cap PO 07/23/17 [History Confirmed 08/01/17] PFSH Medical History Shoulder pain (Acute) child (Acute) Social History Smoking Status: Never smoker alcohol intake: never HPI HPI Chief Complaint: L shoulder recheck Details: MIGUEL RENO, is a 46 F who presents to the office today for f/u L shoulder injury, noting decreased pain and increased ROM since last evaluation. She notes + compliance w/ work restrictions, med rxs, and home ROM - stating she is scheduled to start P.T. at [employer] tomorrow. She notes she would like to have her work restrictions modified to allow her to do more at work as well as have her hours restrictions lifted. No other c/o at this time. ROS Const Constitutional: Positive for chills; no excessive sweating, fever(s) or night sweats Cardio Cardiology: No excessive sweating Musc Musculoskeletal: Positive for joint pain; no back pain, limited range of motion, joint swelling, tingling or numbness Skin Skin: No rash Neuro Neurology: No tingling or numbness Endo Endocrine: No excessive sweating Exam Const General: cooperative, healthy appearing, no acute distress, comfortable Nutritional Appearance: average body habitus Orientation: alert, awake, oriented x3 HENMT Head: normal to inspection Chest Chest palpation AND inspection: normal inspection of the chest Resp Effort AND Inspection: normal respiratory effort, able to speak in complete sentences, symmetric chest movement Cardio Rate: tachycardic Pulses: radial pulses present [facility] Mus[facility]: Yes joint tenderness and decreased ROM (abduc. 150degrees; otherwise FAROM); no joint redness or joint warmth Skin General: no rashes or lesions noted Neuro General: alert, awake, oriented x3, gait normal Cognition: normal cognition Speech: speech normal Gait: normal gait Motor: muscle tone normal throughout Sensory Exam: no sensory deficits noted Extrem General: normal to inspection Assessment AND Plan Problems 1. Left shoulder strain S46.912A Plan RTW w/ no reaching above shoulder level and 5 lb lift/ push/ pull restrictions LUE; no restrictions w/ RUE. Continue home ROM and start P.T. tomorrow as previously arranged. Recheck 2 wks, sooner prn worse ---> ANTICIPATE RELEASE AT NEXT RECHECK* Pt states acknowledging understanding all the above. Coding Level of Care Code Off vis,est,level 3 Diagnoses Left shoulder strain S46.912A 08/01/17 1458 <Electronically signed by Trevin TAVERAS> Date Trevin TAVERAS Cosfran Signature: Date (if applicable) CC: URGENT CARE VISIT Observed: 07/23/2017 Status: F Source: EARNEST REPORT 10:[address] [place] [address] OFFICE VISIT Date of Service: 07/23/17 MR#: [id number] Acct: [id number] Name: MIGUEL RENO Rep #: [id number] : 1970 Provider: Trevin TAVERAS Age/Sex: 46/F Location: [facility] Status: Signed Intake Vital Signs07/23/17 Height 5 ft 3 in Intake Visit Reasons: LEFT SHOULDER INJURY/ DOMETIC Chief Complaint: Left shoulder pain Is patient in pain?: Yes (L shoulder ) Pain scale (1-10): 10 Allergies bacitracin [From Neosporin (frk-dgf-pzxto)] Allergy (Verified 07/23/17 09:16) Unknown neomycin [From Neosporin (iuc-gaq-ybspt)] Allergy (Verified 07/23/17 09:16) Unknown polymyxin B [From Neosporin (jwl-aiv-rmrpo)] Allergy (Verified 07/23/17 09:16) Unknown Medications cyclobenzaprine 10 mg tablet 10 mg PO TID PRN #20 tab 07/23/17 [Rx Confirmed 07/23/17] folic acid 0.8 mg capsule 800 mcg PO QDAY 07/23/17 [History Confirmed 07/23/17] prednisone 10 mg tablets in a dose pack See Label Instructions PO PER PKG DIR #21 tab 07/23/17 [Rx Confirmed 07/23/17] vit B12 50 mcg-iodine 75 mcg-mag 100 hd-dvlb-bzltzpin-herb 193 capsule cap PO 07/23/17 [History Confirmed 07/23/17] PFSH Medical History Shoulder pain (Acute) child (Acute) Social History Smoking Status: Never smoker alcohol intake: never HPI HPI Chief Complaint: Left shoulder pain Details: MIGUEL RENO, is a 46 F who presents to the office today for initial evaluation left shoulder pain. 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 She notes the severe aching 9/10 pain is aggravated to touch and with any range of motion left shoulder. She notes no prior history of injuries or surgeries to the same. She is left-hand dominant. She notes no other associated symptoms, stating pvyt-xvw-ejojykv Motrin gave her no relief of symptoms. She notes no other alleviating or aggravating factors. ROS Const Constitutional: No chills, fever(s) or body ache Musc Musculoskeletal: Positive for joint pain and limited range of motion; no back pain, joint swelling, deformity, tingling or numbness Skin Skin: No rash Neuro Neurology: No tingling or numbness Exam Const General: cooperative, healthy appearing, no acute distress Nutritional Appearance: average body habitus Orientation: alert, awake, oriented x3 Chest Chest palpation AND inspection: normal inspection of the chest Resp Effort AND Inspection: normal respiratory effort, able to speak in complete sentences, symmetric chest movement Cardio Rate: regular rate Pulses: radial pulses present Skin General: no rashes or lesions noted Neuro General: alert, awake, oriented x3, gait normal Cognition: normal cognition Speech: speech normal Gait: normal gait Motor: muscle tone normal throughout Sensory Exam: no sensory deficits noted Extrem General: normal to inspection, abnormal ROM, normal capillary refill, no joint enlargement, normal exam except as noted (Tender to palpation distal left deltoid), other (X-rays today reveal NAP per my review, pending radiologist's interpretation) Assessment AND Plan Problems 1. Left shoulder strain S46.912A Plan All for aggressive shift, returning to work tomorrow with no use left arm -norm decided all times. Prednisone and Flexeril as prescribed today. Rest, ice, passive home range of motion exercises as instructed today. C9 submitted today for physical therapy to evaluate and treat 3 times a week 4 weeks. [facility] August 01, 2017, sooner should symptoms worsen or any other concerns develop. Patient states acknowledging understanding all of the above. This note was generated with Imagga dictation software. It may contain incorrect words, spelling, and punctuation that were not noted in checking the note before signing. Orders Orders: Referrals: Medications New: cyclobenzaprine to be taken only after work hours n work10 mg PO TID PRN muscle spasm days Discontinued: Coding Level of Care Code Off vis,new,level 3 Diagnoses Left shoulder strain S46.912A 07/23/17 1023 <Electronically signed by Trevin TAVERAS> Date Trevin TAVERAS Cosigner Signature: Date (if applicable) CC: SHOULDER MIN 2 VIEWS Observed: 07/23/2017 Status: F Source: EARNEST 9:25 AM [facility] REPOSITORY [facility] [address] [place] [address] Shoulder min 2 Views MR#: [id number] Acct: [id number] Name: MIGUEL RENO Rep #: [id number] : 1970 F 46 From: Jb Newberry MD PCP: BHAVYA BAILEY Status: REG CLI Study: Shoulder min 2 Views Date of Exam: 07/23/17 Exam# [id number] Ordering Dr: Trevin Costello STUDY: X-RAY - LEFT SHOULDER REASON FOR EXAM: Female, 46 years old. Shoulder pain after repetitive lifting at work. TECHNIQUE: 3 view(s) of the shoulder. COMPARISON: None. FINDINGS: There is a mildly low riding shoulder without brian dislocation. There is no acute fracture lucency. There is no cortical step-off. The acromioclavicular and coracoclavicular joint spaces appear normal. The left lung within the field of view appears unremarkable. There is well-corticated and diffuse calcification adjacent to the humeral head and in the subacromial space. Normal Normal visualized pulmonary apex. RAD/Shoulder min 2 Views IMPRESSION: No evident acute osseous abnormality. Periarticular calcification consistent with a manifestation of calcific tendinitis versus calcific bursitis/capsulitis. Mildly low riding humeral head may represent a manifestation of joint effusion. Electronically Signed: Jb Newberry MD at 9:52 EDT , Service support , CC: BHAVYA BAILEY; Trevin TAVERAS Sample Display Preparer: Signed ALLERGIES ALLERGIES DATE TYPE / CODE NAME / CODE REACTION SEVERITY SOURCE 10/22/2017 Drug neomycin/[id number] Unknown Unknown [facility]416 775(RXNORM) [facility] 767390(SNOM Repository ED CT) 10/22/2017 Drug bacitracin/F0060 Unknown Unknown [facility] Allergy/416 86031(RXNORM) [facility] 984798(SNOM Repository ED CT) 10/22/2017 Drug polymyxin Unknown Unknown [facility] Allergy/416 B/[id number](RXN Hospital 132236(SNOM ORM) Repository ED CT) ENCOUNTERS ENCOUNTERS ADMIT/DISCHARGE ACCOUNT ADMITTING ENCOUNTER LOCATION SOURCE NUMBER CLASS 03/15/2018 [id number] Ambulatory [place] [facility] ing:US Repository 03/01/2018 [id number] Ambulatory [place] [facility] ing:US Repository 10/22/2017/ [id number] Ambulatory BMSBuilding:B [place] 8 0 [place].NOW [facility] Repository 09/27/2017/ [id number] Ambulatory BMSBuilding:B Earnest 8 5 MS.[facility] Repository 09/13/2017/ [id number] Ambulatory BMSBuilding:B [place] 8 6 [place].NOW [facility] Hospital Repository 09/12/2017/ [id number] Ambulatory [place] 5 [facility] ing:PT Repository 08/30/2017/ [id number] Ambulatory BMSBuilding:B E[place] 8 6 MS.NOW [facility] Hospital Repository 08/16/2017/ [id number] Ambulatory BMSBuilding:B [place] 8 9 [place].[facility] Repository 08/01/2017/ [id number] Ambulatory BMSBuilding:B [place] 8 6 MS.[facility] Repository 07/23/2017 [id number] Ambulatory [place] [facility] ing:HPRAD Repository 07/23/2017/ [id number] Ambulatory BMSBuilding:B [place] 8 8 MS.NOW [facility] Repository 07/23/2017/ [id number] Ambulatory BMSBuilding:B [place] 8 7 [place].NOW [facility] Hospital Repository 04/30/2017/ [id number] Ambulatory BMSBuilding:B [place] 8 0 MS.NOW [facility] Repository PAYERS PAYERS ENCOUNTER GUARANTOR PAYER SUBSCRIBER SOURCE 03/15/2018 ELVIN Jessica Primary ELVIN Lopez [place] [id number] TR Insurance:MEDICAL PENNELLDOB: [address] [id number] Hospital [address]Ktc: (330) Number: Repository [phone] () [id number] Date:[id number] [address]WP: 03/15/2018 Secondary NOT GIVENUNK [place] Insurance:SELF PAY [facility] Number: Effective Repository Date:2018-03-08 03/01/2018 ELVIN Lopez Primary ELVIN Lopez [place] [id number] TR Insurance:MEDICAL PENNELLDOB: [address] [id number] [facility] [address]Rrm: (330) Number: Repository [phone] () [id number] Date:1511-15-91HB[address]WP: 03/01/2018 Secondary NOT GIVENUNK [place] Insurance:SELF PAY [facility] Number: Effective Repository Date:2018-02-25 10/22/2017 ELVIN Lopez Primary TI A PENNELLDOB: [place] [id number] TR Insurance:MEDICAL [id number] [address]Zdz: (330) Number: Repository [phone] () [id number] Date:1857-58-64[place] [id number]: 10/22/2017 Secondary TI A PENNELLDOB: [place] Insurance:OB [id number] AD[facility] Number: Repository [id number] Date: [place], [place] [address]RO: 10/22/2017 Tertiary NOT GIVENUNK [place] Insurance:SELF PAY [facility] Number: Effective Repository Date:2017-10-22 09/27/2017 Elvin Lopez Primary TI A PENNELLDOB: Earnest [id number] Twp Insurance:[facility] [id number] [place] [address]Ihy: ADMINPolicy Number: Repository [id number] (HP) Date: [place], [place] [address]DG: 09/27/2017 Secondary NOT GIVENUNK [place] Insurance:SELF PAY [facility] Number: Effective Repository Date:2017-09-27 09/13/2017 Elvin Lopez Primary TI A PENNELLDOB: Earnest [id number] Twp Insurance:[facility] [id number] [address]Rxn: ADMINPolicy Number: Repository [id number] (HP) Date: [place], [place] [address]LX: 09/13/2017 Secondary NOT GIVENUNK [place] Insurance:SELF PAY [facility] Number: Effective Repository Date:2017-09-13 09/12/2017 Elvin Lopez Primary TI A PENNELLDOB: [place] [id number] Twp Insurance:[facility] [id number] [place] [address]Jkf: ADMINPolicy Number: Repository [id number] (HP) Date: [place], [place] [address]UO: 09/12/2017 Secondary NOT GIVENUNK E[place] Insurance:SELF PAY [facility] Number: Effective Repository Date:2017-07-26 08/30/2017 Elvin Lopez Primary TI A PENNELLDOB: [place] [id number] Twp Insurance:OB [id number] [address] [place] [address]Rno: ADMINPolicy Number: Repository [id number] (HP) Date: [place], [place] [address]GY: 08/30/2017 Secondary NOT GIVENUNK E[place]est Insurance:SELF PAY [facility] Number: Effective Repository Date:2017-08-30 08/16/2017 Elvin Lopez Primary TI A PENNELLDOB: [place] [id number] Twp Insurance:OB [id number] [place] [address]Uec: ADMINPolicy Number: Repository [id number] (HP) Date: [place], [place] [address]VX: 08/16/2017 Secondary NOT GIVENUNK [place] Insurance:SELF PAY [facility] Number: Effective Repository Date:2017-08-16 08/01/2017 Elvin Jessica Primary TI A PENNELLDOB: Earnest [id number] Twp Insurance:OB [id number] [place] [address]Gdy: ADMINPolicy Number: Repository [id number] (HP) Date: [place], [place] [address]OP: 08/01/2017 Secondary NOT GIVENUNK Earnest Insurance:SELF PAY [facility] Number: Effective Repository Date:2017-08-01 07/23/2017 Elvin Jessica Primary TI A PENNELLDOB: [place] [id number] Twp Insurance:OB [id number] [address] [place] [address]Rfo: ADMINPolicy Number: Repository [id number] (HP) Date: [facility], [place] [address]IO: 07/23/2017 Secondary NOT GIVENUNK [place] Insurance:SELF PAY [facility] Number: Effective Repository Date:2017-07-23 07/23/2017 Elvin Lopez Primary NOT GIVENUNK Earnest [id number] Twp Insurance:SELF PAY [address] [address]Yrc: Number: Effective Repository Date:2017-07-23 (HP) 07/23/2017 Elvin Lopez Primary NOT GIVENUNK Earnest [id number] Twp Insurance:SELF PAY [address] [address]Urh: Number: Effective Repository Date:2017-07-23 (HP) 04/30/2017 Elvin Lopez Primary NOT GIVENUNK Earnest [id number] Twp Insurance:SELF PAY [address] [address]Zch: Number: Effective Repository Date:2017-04-30 ()
== END ==
PROVIDERS: Family Provider Family Medicine; PCP Family Medicine; Referring Provider Family Medicine; Visit Provider Family Medicine
DX: E04.1 Nontoxic single thyroid nodule (principal)
CPT/HCPCS: 76536

== ENCOUNTER → 2018-03-15 13:42 | Outpatient (CLI) | payer OTHER, SELFPAY ==
[2017-10-22 07:44] VITALS: BMI 35.6
--- NOTE | 2018-03-15 | ASPIG_PTH ---
PATIENT: MIGUEL RENO LOC: [facility] FACILITY#:[id number] AGE/SX: 54/F ROOM: RE03/15/[address]: Dr. Hever Bailey MD : 1970 BED: DIS: SPEC #: [id number] RECD: 03/15/18 14:34 STATUS: MANUEL ROGERSMonica #: [id number] NICK: 03/15/18 00:[address]: Hever Bailey DEPT: CYTOLOGY RECD BY: Elvin Quesada Tissues: THORACIC FLUID Procedures: FNA Specimen Adequacy Special Stain Group II Surgery Specimen Level IV Cytology Other HEADER OPERATION: Ultrasound-guided left thyroid biopsy PRE-OP DIAGNOSIS: Left thyroid nodule TISSUE SUBMITTED: Left thyroid nodule, ultrasound-guided FNA DIAGNOSIS CYTOLOGY Left thyroid nodule, ultrasound-guided FNA (smears and cell block): Consistent with benign cystic follicular nodule. See cytology study and comment. CELSO:stevie 03/18/18 COMMENT The specimen is evaluated at the time of ultrasound-guided left thyroid biopsy by Dr. Ortiz. Immediate Evaluation = Follicular cells present. Adequate for evaluation. Correlation with clinical, radiologic findings and appropriate follow up are necessary. CYTOLOGY STUDY Slides are reviewed. The specimen is adequate for evaluation. The specimen consists of numerous macrophages and benign follicular cells. CYTOLOGY GROSS Received is 0.2 ml of bloody fluid from two passes labeled with the patient's name, and designated left thyroid nodule. Eight imprints and five paps are made from the submitted fluid and the rest is added to CytoL[employer] for cell block preparation. Submitted for cytology study. / SJ:rg 03/15/18 TC:5 CPT: 27140, 08708, 00885
--- NOTE | 2018-03-15 13:46 | US_ITS ---
PROCEDURE: ULTRASOUND GUIDED LEFT THYROID FNA/BIOPSY. DATE: March 15, 2018. INDICATION: Female, 47 years old. Heterogeneous nodule in the left lobe of the thyroid. PHYSICIAN: Ramakrishna Cnon M.D. MEDICATIONS: 2% lidocaine administered subcutaneously for local anesthesia. ACCESS SITE: Left - anterior approach. NEEDLE: 25-gauge FNA needle. SPECIMEN: Multiple FNA specimen collected and given to pathology. EBL: None. COMPLICATIONS: None immediate. PROCEDURE: The risks, benefits, and alternatives to the procedure were explained to the patient. The specific risk of hemorrhage requiring further treatment or intervention was detailed and accepted. Written informed consent was obtained. The patient was brought into the ultrasound room and placed in the supine position on the stretcher. An appropriate entry site was identified. The overlying skin was prepped and draped in the usual sterile fashion. 2% lidocaine was administered subcutaneously for local anesthesia. Under ultrasound guidance, a 25-gauge FNA needle was advanced into the lesion. Aspiration was performed and the needle was withdrawn. A total of 2 passes were performed with specimen collected and given to the pathologist who was present during the procedure. Hemostasis was achieved with manual compression. Repeat ultrasound images of the biopsy area was performed which demonstrated no gross bleeding or hematoma. An antibiotic ointment dressing was placed and the patient was given an icepack. The patient tolerated the procedure well without immediate complications. The patient was discharged in stable condition. US/US Thyroid Biopsy IMPRESSION: Successful ultrasound-guided left thyroid nodule FNA/biopsy, as described above. Electronically Signed: Ramakrishna Conn MD at 15:03 EST Tel [phone], Service support ,
--- OUTSIDE RECORDS SUMMARY | 2018-06-19 04:12 | XMS RPT_ITS ---
:1970 Author Organization [place] Support Name Relationship Address Phone ELVIN RENO Unavailable [address] + [place], [place] [id number] [place], [place] [address]EUGENIE Unavailable [address] + [place] [address] [facility] Un[address] + [place] [address] ELVIN RENO Unavailable [address] + [place] [address] ONEIDAEUGENIE Unavailable [address] + [place] [address] [facility] Unavailable [address] + [place] [address] ELVIN RENO Unavailable [address] + [place] [address] ONEIDAEUGENIE Unavailable [address] + [place] [address] [facility] Unavailable . + [place] [address] ELVIN RENO Unavailable [address] + [place] [address] ONEIDA EUGENIE Unavailable [address] + [place] [address] [facility] Unavailable . + [place] [address] ELVIN RENO Unavailable [address] + [place] [address] HARMONEUGENIE Unavailable [address] + [place] [address] [facility] Unavailable . + [place] [address] ELVIN RENO Unavailable [address] + [place] [address] HARMON, EUGENIE Unavailable [address] + [place] [address] [facility] Unavailable . + [place] [address] ELVIN RENO Unavailable [address] + [place] [address] HARMON, EUGENIE Unavailable [address] + [place] [address] [facility] Unavailable . + [place] [address] ELVIN RENO Unavailable [address] + [place] [address] HARMON, EUGENIE Unavailable [address] + [place] [id number] [facility] Unavailable . + [place] [address] ELVIN RENO Unavailable [address] + [place] [address] HARMON, EUGENIE Unavailable [address] + [place] [id number] [facility] Unavailable . + [place] [address] ELVIN RENO Unavailable [address] + [place] [address] HARMON, EUGENIE Unavailable [address] + [place] [address] [facility] Unavailable . + [place] [address] ELVIN RENO Unavailable [address] + [place] [address] HARMON, EUGENIE Unavailable [address] + [place] / UE Unavailable Unavailable Unavailable ELVIN RENO Unavailable [address] + [place] [address] HARMON, EUGENIE Unavailable [address] + [place] [address] [facility] Unavailable . + [place] [address] ROWDY ELVIN Unavailable [address] + [place] [address] EUGENIE HARMON Unavailable [address] + [place] / Unavailable Unavailable Unavailable Care Team Providers Name Role Phone Trevin Costello Attending Unavailable TOMCHAK, BHAVYA Referring Unavailable TOMCHAK, BHAVYA Primary Care Unavailable TOMCHAK, BHAVYA Attending Unavailable TOMCHAK, BHAVYA Referring Unavailable TOMCHAK, BHAVYA Primary Care Unavailable Rene Daniels Attending Unavailable TOMCHAK, BHAVYA Referring Unavailable TOMCHAK, BHAVYA Primary Care Unavailable Wyles, Trevin Attending Unavailable TOMCHAK, BHAVYA Referring Unavailable TOMCHAK, BHAVYA Primary Care Unavailable Waysusana, Moshe Attending Unavailable TOMCHAK, BHAVYA Referring Unavailable Wyles, [...] Trevin Attending Unavailable Wyles, Trevin Attending Unavailable Jeremiah, Rene Attending Unavailable TOMCHAK, BHAVYA Attending Unavailable TOMCHAK, BHAVYA Referring Unavailable TOMCHAK, BHAVYA Primary Care Unavailable PROBLEMS PROBLEMS DATE TYPE CONDITION / CODE ATTENDING STATUS SOURCE 10/01/2017 Unknown S46.912A - Strain Moshe Sebastian Active Rule of unspecified Community muscle, fascia Hospital and tendon at Repository shoulder and upper arm level, left arm, initial encounter / S46.912A(ICD-10) 01/17/2018 Unknown S46.912D - Strain Trevin Costello Active [place] of unspecified Community muscle, fascia Hospital and tendon at Repository shoulder and upper arm level, left arm, subsequent encounter / S46.912D(ICD-10) PROCEDURES PROCEDURES No Procedure Records FoundRESULTS RESULTS US THYROID BIOPSY Observed: 03/15/2018 Status: F Source: [place]ST 1:46 PM [facility] REPOSITORY [facility] Imaging Services [address] [place] [address] US Thyroid Biopsy MR#: [id number] Acct: [id number] Name: MIGUEL RENO Rep #: [id number] : 1970 F 47 From: Ramakrishna Conn MD PCP: Bhavya Bailey MD Status: REG CLI Study: US Thyroid Biopsy Date of Exam: 03/15/18 Exam# [id number] Ordering Dr: Bhavya Bailey MD PROCEDURE: ULTRASOUND [...] Ramakrishna Conn MD at 15:03 EST Tel [phone], Service support , CC: Bhavya Bailey MD Bank Examiner: Signed ASP RADIOLOGY (FLUID) Observed: 03/15/2018 Status: F Source: E[place] 12:00 AM [facility] REPOSITORY Patient: MIGUEL RENO : 1970 (47/F) Acct Num: [id number] Phys: Bhavya Bailey MD Unit Num: [id number] Loc: US Specimen: [id number] Received: 03/15/18 - [...] cytology study. / SJ:stevie 03/15/18 TC:5 CPT: 68743, 50667, 38293 CYTOLOGY STUDY Slides are reviewed. The specimen [...] on file> Performed By: #### PASPIG #### [facility] Laboratory [address] [facility] [place], [address] THYROID Observed: 03/01/2018 Status: F Source: [place] 12:32 PM [facility] REPOSITORY [facility] Imaging Services [address] [place] [address] Thyroid MR#: [id number] Acct: [id number] Name: MIGUEL RENO Rep #: [id number] : 1970 F 47 From: Moshe Ward MD PCP: Bhavya Bailey MD Status: REG CLI Study: Thyroid Date of Exam: 03/01/18 Exam# [id number] Ordering Dr: Bhavya Bailey MD HISTORY: THYROID [...] Service support , CC: Bhavya Bailey MD Bank Examiner: Signed URGENT CARE VISIT Observed: 10/22/2017 Status: F Source: [place] REPORT 12:47 PM [facility] REPOSITORY [facility] [address] [place] [address] OFFICE VISIT Date of Service: 10/22/17 MR#: [id number] Acct: [id number] Name: MIGUEL RENO Rep #: [id number] : 1970 Provider: Rene TAVERAS Age/Sex: 47/F Location: [facility] Status: Signed Intake Vital Signs10/22/17 Height 5 ft 3 in Intake Visit Reasons: TICK ON NECK Allergies bacitracin [From Neosporin (rgs-kjl-qkzax)] Allergy (Verified 10/22/17 07:56) Unknown neomycin [From Neosporin (ner-nkn-rdpql)] Allergy (Verified 10/22/17 07:56) Unknown polymyxin B [From Neosporin (vrk-dve-rnagi)] Allergy (Verified 10/22/17 07:56) Unknown Medications folic acid 0.8 mg capsule 800 mcg PO QDAY 07/23/17 [History Confirmed 10/22/17] vit B12 50 mcg-iodine 75 mcg-mag 100 pb-hdfv-eahnrrej-herb 193 capsule cap PO 07/23/17 [History Confirmed [...] CARE VISIT Observed: 09/27/2017 Status: F Source: [place]NER REPORT 3:35 PM [facility] Now [address] [place] [address] OFFICE VISIT Date of Service: 09/27/17 MR#: [id number] Acct: [id number] Name: MIGUEL RNEO Rep #: [id number] : 1970 Provider: Trevin TAVERAS Age/Sex: 47/F Location: [facility] Status: Signed Intake Vital Signs09/27/17 Height 5 ft 3 in 09/27/17 Weight: 201 lb 09/27/17 Body Mass Index (BMI) 35.6 Intake Visit Reasons: 2 WK F/U Chief Complaint: L shoulder recheck Soil Engineer Required: No Is patient in pain?: Yes Allergies bacitracin [From Neosporin (pev-qcy-hdlde)] Allergy (Verified 09/27/17 15:25) Unknown neomycin [From Neosporin (ntz-xwg-oybui)] Allergy (Verified 09/27/17 15:25) Unknown polymyxin B [From Neosporin (ebc-pzf-cphdv)] Allergy (Verified 09/27/17 15:25) Unknown Medications cyclobenzaprine 10 mg tablet 10 mg PO TID PRN #20 tab 07/23/17 [Rx Confirmed 09/27/17] folic acid 0.8 mg capsule 800 mcg PO QDAY 07/23/17 [History Confirmed 09/27/17] prednisone 10 mg tablets in a dose pack See Label Instructions PO PER PKG DIR #21 tab 07/23/17 [Rx Confirmed 09/27/17] vit B12 50 mcg-iodine 75 mcg-mag 100 tg-hdlq-nbeckmdw-herb 193 capsule cap PO 07/23/17 [History Confirmed [...] the above. This note was generated with [employer] software. It may contain incorrect words, spelling, and punctuation that were not noted in checking the note before signing. Coding Level of Care Code Off vis,est,level 3 Diagnoses Left shoulder strain S46.912A 09/27/17 1535 <Electronically signed by Trevin TAVERAS> Date Trevin TAVERAS Cosigner Signature: Date (if applicable) CC: OFFICE VISIT REPORT Observed: 09/17/2017 Status: F Source: [place] 10:17 AM [address] [place] [address] OFFICE VISIT Date of Service: 09/13/17 MR#: [id number] Acct: [id number] Patient: MIGUEL RENO Roberta Rep #: [id number] : 1970 Provider: DARCY Sebastian Age/Sex: 46/F Location: [facility] Status: Signed Intake Vital Signs09/13/17 Height 5 ft 3 in 09/13/17 Weight: 201 lb 09/13/17 Body Mass Index (BMI) 35.6 09/13/17 Blood Pressure 114/80 Intake Visit Reasons: 2 wk f/u Chief Complaint: L shoulder recheck Soil Engineer Required: No Is patient in pain?: No Allergies bacitracin [From Neosporin (ghg-hog-ufeew)] Allergy (Verified 09/13/17 15:50) Unknown neomycin [From Neosporin (rna-vpg-jmthl)] Allergy (Verified 09/13/17 15:50) Unknown polymyxin B [From Neosporin (hll-zyv-nrjie)] Allergy (Verified 09/13/17 15:50) Unknown Medications cyclobenzaprine 10 mg tablet 10 mg PO TID PRN #20 tab 07/23/17 [Rx Confirmed 09/13/17] folic acid 0.8 mg capsule 800 mcg PO QDAY 07/23/17 [History Confirmed 09/13/17] prednisone 10 mg tablets in a dose pack See Label Instructions PO PER PKG DIR #21 tab 07/23/17 [Rx Confirmed 09/13/17] vit B12 50 mcg-iodine 75 mcg-mag 100 wk-tvuz-tdkteadv-herb 193 capsule cap PO 07/23/17 [History Confirmed [...] 09/12/2017 Status: F Source: [place] 5:14 PM [facility] REPOSITORY [facility] Physical Therapy [facility] [address] [place] [address]. [address] [place] [address] Fax REEVALUATION / MEDICARE RECERTIFICATION PHYSICAL THERAPY MR#: [id number] Acct: [id number] Name: MIGUEL RENO Rep #: [id number] : 1970 46 From: Catherine Sanchez PT, [...] LEFT ELBOW, WRIST AND HAND 5/5 WITH PROFESSOR OF SPECIAL EDUCATION STRENGTH OF 40 LBS (RIGHT PROFESSOR OF SPECIAL EDUCATION 50 LBS). Sensory deficit: GREGORY UE LIGHT [...] do not hesitate to contact me at [phone] by phone or if you have questions or concerns regarding this new plan of care! Sincerely, Catherine Sanchez <Electronically signed by Catherine Sanchez PT, Cert. MDT> 09/12/17 1714 CC: BHAVYA TAVERAS SUJIT Signed For Medicare only, by signing this I certify the plan of care. Physicians Signature Date URGENT CARE VISIT Observed: 08/30/2017 Status: F Source: EARNEST REPORT 4:47 PM [facility] REPOSITORY [facility] [address] [place] [address] [address] [place] [address] OFFICE VISIT Date of Service: 08/30/17 MR#: [id number] Acct: [id number] Name: MIGUEL RENO Rep #: [id number] : 1970 Provider: Trevin TAVERAS Age/Sex: 46/F Location: [facility] Status: Signed Intake Vital Signs08/30/17 Height 5 ft 3 in 08/30/17 Weight: 201 lb 08/30/17 Body Mass Index (BMI) 35.6 08/30/17 Blood Pressure 126/78 Intake Visit Reasons: 2 WK F/U Chief Complaint: L shoulder recheck Soil Engineer Required: No Is patient in pain?: No Allergies bacitracin [From Neosporin (noh-zem-bnusu)] Allergy (Verified 08/30/17 15:21) Unknown neomycin [From Neosporin (lzz-bek-kocgt)] Allergy (Verified 08/30/17 15:21) Unknown polymyxin B [From Neosporin (rrf-cvw-ogkyw)] Allergy (Verified 08/30/17 15:21) Unknown Medications cyclobenzaprine 10 mg tablet 10 mg PO TID PRN #20 tab 07/23/17 [Rx Confirmed 08/30/17] folic acid 0.8 mg capsule 800 mcg PO QDAY 07/23/17 [History Confirmed 08/30/17] prednisone 10 mg tablets in a dose pack See Label Instructions PO PER PKG DIR #21 tab 07/23/17 [Rx Confirmed 08/30/17] vit B12 50 mcg-iodine 75 mcg-mag 100 dx-komk-ykkgqtbo-herb 193 capsule cap PO 07/23/17 [History Confirmed [...] the above. This note was generated with [employer] dictation software. It may contain incorrect words, spelling, and punctuation that were not noted in checking the note before signing. Coding Level of Care Code Off vis,est,level 3 Diagnoses Left shoulder strain S46.912A 08/30/17 5332 <Electronically signed by Trevin TAVERAS> Date Trevin TAVERAS Cosigner Signature: Date (if applicable) CC: URGENT CARE VISIT Observed: 08/16/2017 Status: F Source: EARNE[facility] REPORT 4:44 PM [facility] REPOSITORY [facility] [address] [place] [address] 6 [place] [address] OFFICE VISIT Date of Service: 08/16/17 MR#: [id number] Acct: [id number] Name: MIGUEL RENO Rep #: [id number] : 1970 Provider: Trevin TAVERAS Age/Sex: 46/F Location: [facility] Status: Signed Intake Vital Signs08/16/17 Height 5 ft 3 in 08/16/17 Weight: 201 lb 08/16/17 Body Mass Index (BMI) 35.6 08/16/17 Blood Pressure 120/74 Intake Visit Reasons: LEFT SHOULDER STRAIN Chief Complaint: L shoulder recheck Soil Engineer Required: No Is patient in pain?: No Allergies bacitracin [From Neosporin (fsp-tgo-cvxto)] Allergy (Verified 08/16/17 16:26) Unknown neomycin [From Neosporin (fhj-mcm-cnfjn)] Allergy (Verified 08/16/17 16:26) Unknown polymyxin B [From Neosporin (itx-bms-maxou)] Allergy (Verified 08/16/17 16:26) Unknown Medications cyclobenzaprine 10 mg tablet 10 mg PO TID PRN #20 tab 07/23/17 [Rx Confirmed 08/16/17] folic acid 0.8 mg capsule 800 mcg PO QDAY 07/23/17 [History Confirmed 08/16/17] prednisone 10 mg tablets in a dose pack See Label Instructions PO PER PKG DIR #21 tab 07/23/17 [Rx Confirmed 08/16/17] vit B12 50 mcg-iodine 75 mcg-mag 100 hc-jeke-hkbbdozm-herb 193 capsule cap PO 07/23/17 [History Confirmed [...] minimally. She states she has been taking trch-xhz-fnvpoqf Advil on an as-needed basis only since [...] the above. This note was generated with [employer] dictation software. It may contain incorrect words, spelling, and punctuation that were not noted in checking the note before signing. Medications New: Coding Level of Care Code Off vis,est,level 3 Diagnoses Left shoulder strain S46.912A 08/16/17 0942 <Electronically signed by Trevin TAVERAS> Date [facility]: Date (if applicable) CC: INITAL EVALUATION (1) Observed: 08/10/2017 Status: F Source: EAR[place] - PT 4:00 PM [facility] REPOSITORY [facility] Physical Therapy [facility] [address] [place] [address] Fax REHABILITATION SERVICES INITIAL EVALUATION MR#: [id number] Acct: [id number] Name: MIGUEL RENO Rep #: [id number] : 1970 46 From: Catherine Sanchez PT, Cert. 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 A LOT [...] LEFT ELBOW, WRIST AND HAND 4/5 WITH PROFESSOR OF SPECIAL EDUCATION STRENGTH OF 40 LBS (RIGHT PROFESSOR OF SPECIAL EDUCATION 50 LBS). Sensory deficit: GREGORY UE LIGHT [...] to be FAXED BACK to us at [phone] for Medicare purposes. Please let me know if there are questions or concerns regarding this plan of care. Physician Signature: Date: <Electronically signed by Catherine Sanchez PT, Cert. MDT> 08/10/17 1600 CC: BHAVYA TAVERAS SUJIT Signed For Medicare only, by signing this I certify the plan of care. Physicians Signature Date URGENT CARE VISIT Observed: 08/01/2017 Status: F Source: EARNE[place] REPORT 2:[address] [place] [address] OFFICE VISIT Date of Service: 08/01/17 MR#: [id number] Acct: [id number] Name: MIGUEL RENO Rep #: [id number] : 1970 Provider: Trevin TAVERAS Age/Sex: 46/F Location: [facility] Status: Signed Intake Vital Signs08/01/17 Height 5 ft 3 in Intake Visit Reasons: L shoulder injury Chief Complaint: L shoulder recheck Allergies bacitracin [From Neosporin (slh-rtd-tgnla)] Allergy (Verified 08/01/17 13:50) Unknown neomycin [From Neosporin (gqk-vlz-qapzi)] Allergy (Verified 08/01/17 13:50) Unknown polymyxin B [From Neosporin (pyj-rex-mzxrh)] Allergy (Verified 08/01/17 13:50) Unknown Medications cyclobenzaprine 10 mg tablet 10 mg PO TID PRN #20 tab 07/23/17 [Rx Confirmed 08/01/17] folic acid 0.8 mg capsule 800 mcg PO QDAY 07/23/17 [History Confirmed 08/01/17] prednisone 10 mg tablets in a dose pack See Label Instructions PO PER PKG DIR #21 tab 07/23/17 [Rx Confirmed 08/01/17] vit B12 50 mcg-iodine 75 mcg-mag 100 ja-dbnf-qcrfollb-herb 193 capsule cap PO 07/23/17 [History Confirmed [...] she is scheduled to start P.T. at [facility] [employer] tomorrow. She notes she would like to [...] Cardio Rate: tachycardic Pulses: radial pulses present [facility] Musculoskeletal: Yes joint tenderness and decreased ROM [...] Status: F Source: E[place] REPORT 10:[address] [place] [address] OFFICE VISIT Date of Service: 07/23/17 MR#: [id number] Acct: [id number] Name: MIGUEL RENO Rep #: [id number] : 1970 Provider: Trevin TAVERAS Age/Sex: 46/F Location: [facility] Status: Signed Intake Vital Signs07/23/17 Height 5 ft 3 in Intake Visit Reasons: LEFT SHOULDER INJURY/ DOMETIC Chief Complaint: Left shoulder pain Is patient in pain?: Yes (L shoulder ) Pain scale (1-10): 10 Allergies bacitracin [From Neosporin (qje-jri-neexn)] Allergy (Verified 07/23/17 09:16) Unknown neomycin [From Neosporin (lcq-qab-rvpyf)] Allergy (Verified 07/23/17 09:16) Unknown polymyxin B [From Neosporin (kjn-rqo-wmmqj)] Allergy (Verified 07/23/17 09:16) Unknown Medications cyclobenzaprine 10 mg tablet 10 mg PO TID PRN #20 tab 07/23/17 [Rx Confirmed 07/23/17] folic acid 0.8 mg capsule 800 mcg PO QDAY 07/23/17 [History Confirmed 07/23/17] prednisone 10 mg tablets in a dose pack See Label Instructions PO PER PKG DIR #21 tab 07/23/17 [Rx Confirmed 07/23/17] vit B12 50 mcg-iodine 75 mcg-mag 100 qn-oqzk-uuoxryqu-herb 193 capsule cap PO 07/23/17 [History Confirmed [...] She notes no other associated symptoms, stating rlnk-myl-hzsuoku Motrin gave her no relief of symptoms. [...] the above. This note was generated with [employer] dictation software. It may contain incorrect words, [...] 07/23/2017 Status: F Source: EARNEST 9:25 AM [facility] REPOSITORY [facility] Imaging Services [address] [place] [address] Shoulder min 2 Views MR#: [id number] Acct: [id number] Name: MIGUEL RENO Rep #: [id number] : 1970 F 46 From: Jb Newberry MD PCP: BHAVYA BAILEY Status: REG CLI Study: Shoulder min 2 Views Date of Exam: 07/23/17 Exam# [id number] Ordering Dr: Trevin Costello STUDY: X-RAY - [...] support , CC: BHAVYA BAILEY; Trevin TAVERAS Bank Examiner: Signed ALLERGIES ALLERGIES DATE TYPE / CODE NAME / CODE REACTION SEVERITY SOURCE 10/22/2017 Drug neomycin/C256740 Unknown Unknown Rule Community Allergy/416 775(RXNORM) Hospital 588402(SNOM Repository ED CT) 10/22/2017 Drug bacitracin/F0060 Unknown Unknown Rule Community Allergy/416 85811(RXNORM) Hospital 507223(SNOM Repository ED CT) 10/22/2017 Drug polymyxin Unknown Unknown Rule Community Allergy/416 B/N698559779(RXN Hospital 811829(SNOM ORM) Repository ED CT) ENCOUNTERS ENCOUNTERS ADMIT/DISCHARGE ACCOUNT ADMITTING ENCOUNTER LOCATION SOURCE NUMBER CLASS 03/15/2018 [id number] Ambulatory Rule Rule 4 [facility] ing:US Repository 03/01/2018 [id number] Ambulatory [place] Rule 7 [facility] ing:US Repository 10/22/2017/ [id number] Ambulatory BMSBuilding:B [place] 8 0 MS.NOW [facility] Repository 09/27/2017/ [id number] Ambulatory BMSBuilding:B Rule 8 5 [facility] Hospital Repository 09/13/2017/ [id number] Ambulatory BMSBuilding:B [place] 8 6 MS.NOW [facility] Repository 09/12/2017/ [id number] Ambulatory Rule Rule 8 5 [facility] ing:PT Repository 08/30/2017/ [id number] Ambulatory BMSBuilding:B Rule 8 6 MS.NOW [facility] Repository 08/16/2017/ [id number] Ambulatory BMSBuilding:B [place] 8 9 [facility] Hospital Repository 08/01/2017/ [id number] Ambulatory BMSBuilding:B Rule 8 6 MS.[facility] Hospital Repository 07/23/2017 [id number] Ambulatory Rule Rule 5 [facility] ing:HPRAD Repository 07/23/2017/ [id number] Ambulatory BMSBuilding:B [place] 8 8 MS.NOW [facility] Repository 07/23/2017/ [id number] Ambulatory BMSBuilding:B Rule 8 7 MS.NOW [facility] Repository 04/30/2017/ [id number] Ambulatory BMSBuilding:B Rule 8 0 MS.NOW [facility] Repository PAYERS PAYERS ENCOUNTER GUARANTOR PAYER SUBSCRIBER SOURCE 03/15/2018 ELVIN Jessica Primary ELVIN Lopez Rule [id number] Insurance:MEDICAL PENNELLDOB: [address] [id number] Hospital [address]Rdc: (330) Number: Repository [phone] () [id number] Date:[id number] [address]: 03/15/2018 Secondary NOT GIVENUNK [place] Insurance:SELF PAY [facility] Number: Effective Repository Date:2018-03-08 03/01/2018 ELVIN Lopez Primary [place]VIN Lopez Rule [id number] TR Insurance:MEDICAL PENNELLDOB: [address] [id number] [facility] [address]Edq: (330) Number: Repository [phone] () [id number] Date:[id number]: 03/01/2018 Secondary NOT GIVENUNK [place] Insurance:SELF PAY [facility] Number: Effective Repository Date:2018-02-25 10/22/2017 ELVIN Lopez Primary TI A PENNELLDOB: Rule [id number] Insurance:MEDICAL [id number] [address]Tjf: (330) Number: Repository [phone] () [id number] Date:8931-50-59[place]BV[place] 6[address]001-[address]WP: 10/22/2017 Secondary TI A PENNELLDOB: Rule Insurance:OB [id number] ADMINPolicy Number: Repository [id number] Date: [place], [place] [address]NQ: 10/22/2017 Tertiary NOT GIVENUNK [place] Insurance:SELF PAY [facility] Number: Effective Repository Date:2017-10-22 09/27/2017 Elvin Lopez Primary TI A PENNELLDOB: Rule [id number] Twp Insurance:[facility] [id number] [place] [address]Fly: ADMINPolicy Number: Repository [id number] (HP) Date: [place], [place] [address]JT: 09/27/2017 Secondary NOT GIVENUNK [place] Insurance:SELF PAY [facility] Number: Effective Repository Date:2017-09-27 09/13/2017 Elvin Lopez Primary TI A PENNELLDOB: Rule [id number] Twp Insurance:[facility] [id number] [address]Ocj: ADMINPolicy Number: Repository [id number] (HP) Date: [place], [place] [address]IR: 09/13/2017 Secondary NOT GIVENUNK [place] Insurance:SELF PAY [facility] Number: Effective Repository Date:2017-09-13 09/12/2017 Elvin Lopez Primary TI A PENNELLDOB: [place] [id number] Twp Insurance:[facility] [id number] [place] [address]Hvo: ADMINPolicy Number: Repository [id number] (HP) Date: [place], [place] [address]PO: 09/12/2017 Secondary NOT GIVENUNK [place] Insurance:SELF PAY [facility] Hospital Number: Effective Repository Date:2017-07-26 08/30/2017 Elvin Lopez Primary TI A PENNELLDOB: [place] [id number] Twp Insurance:OB [id number] [address] [place] [address]Hxm: ADMINPolicy Number: Repository [id number] (HP) Date: [place], [place] [address]TR: 08/30/2017 Secondary NOT GIVENUNK [place] Insurance:SELF PAY [facility] Hospital Number: Effective Repository Date:2017-08-30 08/16/2017 Elvin Lopez Primary TI A PENNELLDOB: [place] [id number] Twp Insurance:OB [id number] [place] [address]Rip: ADMINPolicy Number: Repository [id number] (HP) Date: [place], [place] [address]KW: 08/16/2017 Secondary NOT GIVENUNK [place] Insurance:SELF PAY [facility] Hospital Number: Effective Repository Date:2017-08-16 08/01/2017 Elvin Jessica Primary TI A PENNELLDOB: [place] [id number] Twp Insurance:OB [id number] [place] [address]Meb: ADMINPolicy Number: Repository [id number] (HP) Date: [place], [place] [address]LK: 08/01/2017 Secondary NOT GIVENUNK Earnest Insurance:SELF PAY [facility] Number: Effective Repository Date:2017-08-01 07/23/2017 Elvin Jessica Primary TI A PENNELLDOB: Earnest [id number] Twp Insurance:OB [id number] [address] [place] [address]Nog: ADMINPolicy Number: Repository [id number] (HP) Date: [place] [address]WJ: 07/23/2017 Secondary NOT GIVENUNK Rule Insurance:SELF PAY [facility] Number: Effective Repository Date:2017-07-23 07/23/2017 Elvin Lopez Primary NOT GIVENUNK Rule [id number] Insurance:SELF PAY [address] [id number]: Number: Effective Repository Date:2017-07-23 (HP) 07/23/2017 Elvin Lopez Primary NOT GIVENUNK Earnest [id number] Twp Insurance:SELF PAY [address] [address]Tfi: Number: Effective Repository Date:2017-07-23 (HP) 04/30/2017 Elvin Lopez Primary NOT GIVENUNK Earnest [id number] Twp Insurance:SELF PAY [address] [id number]: Number: Effective Repository Date:2017-04-30 ()
== END ==
PROVIDERS: Family Provider Family Medicine; PCP Family Medicine; Referring Provider Family Medicine; Visit Provider Family Medicine
DX: E04.1 Nontoxic single thyroid nodule (principal)
CPT/HCPCS: 10022; 76942; 88161; 88172; 88305; 88313

== ENCOUNTER → 2018-05-17 15:42 | Outpatient (CLI) | payer OTHER, SELFPAY ==
[2017-10-22 07:44] VITALS: BMI 35.6
--- NOTE | 2018-05-17 15:45 | BI_ITS ---
MAMMOGRAPHY - BILATERAL SCREENING REASON FOR EXAM: Female, 47 years old. Routine annual screening examination. PERTINENT HISTORY: Non-contributory. TECHNIQUE: Digital bilateral breast mehnaz (3D mammographic acquisition) in the CC and MLO projections. 2-D mediolateral oblique (MLO) and craniocaudad (CC) views of both breasts were obtained. CAD: Full Field Digital Mammography with Computer Added Detection was performed. COMPARISON: Comparison is made with prior outside examination dated October 14, 2012. FINDINGS: Breast Composition: The breasts are heterogeneously dense, which may obscure small masses. There are no dominant masses or suspicious calcifications. Stable benign-appearing bilateral axillary lymph nodes. No other significant abnormalities are identified. There has been no significant change since the prior study. BI/SCREENING MAMM (CAD), BILAT IMPRESSION: Stable bilateral screening mammogram. Yearly follow-up mammogram recommended. (A) ASSESSMENT CATEGORY: BIRADS Category 2: Benign. A letter regarding these results will be sent to the patient by the facility within 30 days. Approximately 10% of breast cancers are not detected by mammography. A normal mammogram should not delay biopsy of a clinically suspicious abnormality. [id number] Electronically Signed: Ramakrishna Conn, at 10:07 EST , Service support ,
== END ==
PROVIDERS: Family Provider Family Medicine; PCP Family Medicine; Referring Provider Family Medicine; Visit Provider Family Medicine
DX: Z12.31 Encounter for screening mammogram for malignant neoplasm of breast (principal)
CPT/HCPCS: 77063; 77067

== ENCOUNTER → 2022-04-24 | Outpatient (CLI) | payer BC, SELFPAY ==
[2022-04-24 17:49] LABS: Absolute Lymphocyte Count 2.27 X10^3/uL (0.83-4.51); Basophil# 0.05 X10^3/uL; Basophil% 0.6 % (0-1); Eosinophil# 0.24 X10^3/uL; Eosinophils% 2.9 % (0-5); Hematocrit 44.2 % (37-47); Hemoglobin 14.1 g/dL (12.0-15.0); Lymphocyte # 2.27 X10^3/ul (0.83-4.51); Lymphocyte % 27.6 % (19-41); Mean Corp Hgb Conc 31.9 g/dL (32-36); Mean Corpuscular Hgb 29.2 pg (27.0-32.0); Mean Corpuscular Volume 91.5 fL (81-99); Mean Platelet Vol. 9.5 fl (6.2-12.0); Monocyte# 0.62 X10^3/uL; Monocyte% 7.6 % (0-10); NRBC Flagged by Analyzer 0 % (0-5); Neutrophil # 5.01 X10^3/uL (2.7-7.7); Neutrophil % 61.1 % (47-70); Platelet Count 437 K/mm3 (150-450); RBC Distribution Width CV 12.4 % (11.6-14.6); RBC Distribution Width SD 41.5 fl (35.1-43.9); Red Blood Count 4.83 M/mm3 (4.2-5.4); White Blood Count 8.2 K/mm3 (4.4-11.0)
[2022-04-24 18:17] LABS: ALB/GLOB Ratio 0.9 RATIO (0.9-2.4); AST(SGOT) 13 U/L (15-37); Alanine Aminotransfer ALT/SGPT 22 U/L (13-56); Albumin, Serum 3.8 g/dL (3.2-5.0); Alkaline Phosphatase 67 U/L (45-117); Anion Gap 8 (5-15); BUN 11 mg/dL (7-18); BUN/Creat Ratio 15.2 RATIO (10-20); Calcium,Total 9.9 mg/dL (8.5-10.1); Chloride 104 mmol/L (98-107); Creatinine, Serum 0.72 mg/dL (0.55-1.02); EST Glomerular Filtration Rate 90 mL/min (>60); Est Glom Filt Rate - Afr Amer 108 mL/min (>60); Globulin 4.3 g/dL (2.2-4.2); Glucose 91 mg/dL (74-106); Potassium 3.9 mmol/L (3.5-5.1); Protein, Total 8.1 g/dL (6.4-8.2); Sodium Level 139 mmol/L (136-145)
[2022-04-27 18:44] LABS: Anti-Nuclear Antibody Test Negative (.); Anti-dsDNA Ab <1 IU/mL (0-9)
== END | disposition home or self-care (01) ==
LOC: MTLAB 16:34
PROVIDERS: PCP Family Medicine; Referring Provider Physician Assistant; Visit Provider Physician Assistant
DX: L30.8 Other specified dermatitis (principal); L65.9 Nonscarring hair loss, unspecified
CPT/HCPCS: 36415; 80053; 85025; 86038; 86225

== ENCOUNTER → 2022-06-09 | Outpatient (CLI) | payer BC, SELFPAY ==
[2022-06-09 18:07] LABS: Hepatitis B Surface Antibody Non-Reactive
[2022-06-09 18:23] LABS: Prealbumin 28.4 mg/dL (20.0-40.0); T4 Total, Thyroxin 10.5 ug/dL (4.8-13.9); Thyroid Stim Hormone (TSH) 5.26 uIU/mL (0.358-3.74)
[2022-06-11 09:07] LABS: HEPATITIS B SURFACE AG Negative (Negative); Hep C Antibodies Non Reactive (Non Reactive); Hepatitis A IgM Antibody Negative (Negative); Hepatitis B Core AB IgM Negative (Negative)
[2022-06-11 20:26] LABS: Hepatitis A AB, Total Negative (Negative)
== END | disposition home or self-care (01) ==
LOC: MTLAB 15:49
PROVIDERS: PCP Family Medicine
DX: L66.1 Lichen planopilaris (principal)
CPT/HCPCS: 36415; 80074; 84134; 84436; 84439; 84443; 86706; 86708

== ENCOUNTER → 2023-07-05 | Outpatient (CLI) | payer BC, SELFPAY ==
--- NOTE | 2023-07-05 14:57 | BI_ITS ---
MAMMOGRAPHY - BILATERAL SCREENING REASON FOR EXAM: Female, 52 years old. Routine annual screening examination. PERTINENT HISTORY: Non-contributory. TECHNIQUE: Digital bilateral breast tia (3D mammographic acquisition) in the CC and MLO projections. 2-D mediolateral oblique (MLO) and craniocaudad (CC) views of both breasts were obtained. CAD: Full Field Digital Mammography with Computer Added Detection was performed. COMPARISON: Comparison is made with prior study dated May 17, 2018. FINDINGS: Breast Composition: There are scattered areas of fibroglandular density. There are no dominant masses or suspicious calcifications. Stable fat-containing bilateral axillary lymph nodes. No other significant abnormalities are identified. There has been no significant change since the prior study. BI/SCRN MAMM (CAD)W/TIA BILAT IMPRESSION: Stable bilateral screening mammogram. Yearly follow-up mammogram recommended. (A) ASSESSMENT CATEGORY: BIRADS Category 2: Benign. A letter regarding these results will be sent to the patient by the facility within 30 days. Approximately 10% of breast cancers are not detected by mammography. A normal mammogram should not delay biopsy of a clinically suspicious abnormality. [id number] Electronically Signed: Ramakrishna Conn MD at 8:14 EDT ,
== END | disposition home or self-care (01) ==
LOC: OPBI 14:55
PROVIDERS: PCP Nurse Practitioner Family; Referring Provider Nurse Practitioner Family; Visit Provider Nurse Practitioner Family
DX: Z12.31 Encounter for screening mammogram for malignant neoplasm of breast (principal)
CPT/HCPCS: 77063; 77067